=== PATIENT | male | born 1965 | race Caucasian/White ===

== ENCOUNTER → 2023-12-02 12:34 | Outpatient (REF) | payer BC, SELFPAY ==
[2023-12-02 13:19] LABS: % Basophils 0.6 % (0-2); % Eosinophils 4.7 % (0-6); % Immature Granulocytes 0.2 % (0-0.5); % Lymphocytes 13.3 % (20.5-51.1); % Monocytes 8.8 % (1.7-9.3); % Neutrophils 72.4 % (42.2-75.2); Absolute Eosinophils 0.3 10^3/uL (0-0.7); Absolute Lymphocytes 0.8 10^3/uL (1.2-3.4); Absolute Monocytes 0.6 10^3/uL (0.1-0.6); Absolute Neutrophils 4.6 10^3/uL (1.4-6.5); Hematocrit 34.3 % (39.0-52.0); Hemoglobin 11.3 g/dL (13.0-18.0); Mean Corp Hgb Conc. 32.9 g/dL (33.0-37.0); Mean Corpuscular Hgb 29.7 pg (27.0-31.0); Mean Platelet Volume 11.1 fL (7.4-10.4); Nucleated Red Blood Cells % 0 % (-); Platelet Count 130 10^3/uL (130-400); Red Blood Cell Count 3.81 10^6/uL (4.70-6.10); Red Cell Dist. Width 14.2 % (11.5-14.5); White Blood Cell Count 6.3 10^3/uL (4.8-10.8)
== END ==
LOC: RAD 12:34
PROVIDERS: ATTENDING PHYSICIAN Thoracic Surgery (Cardiothoracic Vascular Surgery); FAMILY PHYSICIAN Family Medicine
DX: Z98.890 Other specified postprocedural states (principal); T14.8XXA Other injury of unspecified body region, initial encounter
CPT/HCPCS: 71260; 85025; Q9967

== ENCOUNTER 2023-12-02 17:34 | Outpatient (RCR) | payer BC, SELFPAY | END 2023-12-02 23:59 | disposition home or self-care (01) | LOC: CRHB 17:34 | PROVIDERS: ATTENDING PHYSICIAN Internal Medicine | DX: Z95.2 Presence of prosthetic heart valve (principal) | CPT/HCPCS: 93798; G0422; G0423 ==

== ENCOUNTER 2023-12-18 17:55 | Outpatient (RCR) | payer BC, SELFPAY | END 2023-12-18 23:59 | disposition home or self-care (01) | LOC: CRHB 17:55 | PROVIDERS: ATTENDING PHYSICIAN Internal Medicine | DX: Z95.4 Presence of other heart-valve replacement (principal) | CPT/HCPCS: 93798 ==

== ENCOUNTER → 2024-01-04 09:09 | Outpatient (REF) | payer BC, SELFPAY | LOC: RCS 09:09 | PROVIDERS: ATTENDING PHYSICIAN Thoracic Surgery (Cardiothoracic Vascular Surgery); FAMILY PHYSICIAN Family Medicine | DX: Z98.890 Other specified postprocedural states (principal) | CPT/HCPCS: 93306 ==

== ENCOUNTER 2024-01-08 06:09 | Day surgery (SDC) | payer BC, SELFPAY ==
[2024-01-08] VITALS (7 sets, daily range): BP systolic 110–120; BP diastolic 72–82; BMI 25.6
--- NOTE | 2024-01-08 06:39 | W.CVOR.SURPR ---
CVOR Surgeon Immed Pre Op
-
I have examined this patient prior to performance of the scheduled procedure.
The patient's condition is unchanged from the time of the dictated/written History and
Physical and the patient is able to undergo the scheduled procedure.
Temporary pacing wire extraction under anesthesia
[2024-01-08] MEDS: NORMOSOL-R 1000 IV (07:07)
--- NOTE | 2024-01-08 09:12 | W.PA-PDMP ---
[place]-PDMP
-
Checked the [place]- Prescription Drug Monitoring Program website, no red flags identified; safe to proceed with prescription.
--- NOTE | 2024-01-08 09:14 | W.PN.CT.SURG ---
CT Surgery Operative Note
-
Pre-op Diagnosis: Pacing wire site granuloma
Post-op Diagnosis: Same
Procedure: Full extraction of one ventricular pacing wire and partial extraction of the second pacing wire, Incision and Debridement of Granulomatous Tissue and Primary Closure
Primary Surgeon: Sam Hughes MD, MS
Assisting Surgeons: Liliya Anglin PA-C (necessary to follow suture, suctioning, exposure, wound closure under my direction)
Anesthesiologist: Jay Taylor MD, Brenda Rodriguez CRNA
Scrub and Vault Manager: Kavya Pardo RN, and Sandi Betancur RN
Specimen: Granulomatous tissue and pacing wires
Cultures: Wires sent for cultures
Complications / Blood Loss: 10cc
Findings: The patient was prepped in the usual fashion from chin all the way down to groins bilaterally. A preoperative timeout was performed with all members of the staff. Antibiotics were given preoperatively within 1 hour of incision.
There was an obvious granulomatous growth from over top of the previous pacer wire site. This was resected and sent off for permanent pathology. I then continued down into the wound and was able to find the tip of one of the pacing wires. This
was placed onto a small hemostat clamp. The second wire was more buried was also identified and a hemostat was placed on that 1 as well. With very gentle traction 1 wire was removed without significant resistance. The second wire had significant
resistance and I was able to feel the heart pulling back against the wire. It was pulled out approximately 4 cm and then cut deep and allowed to retract back to the chest. All granulomatous tissue was debrided sharply and the wound was irrigated
with Betadine solution as well as an antibiotic solution. The depth of the wound was approximately 2cm. The defect was a 1 cm x 1 cm cervical. In order to facilitate a better cosmetic closure, elliptical incision (approximately 3cm in length and
1cm in width) was created around the defect in a horizontal fashion. The wound was then thoroughly debrided to ensure that there is no remaining granulomatous tissue. The deep layer was closed with 3-0 Monocryl sutures in an interrupted fashion.
The superficial layer was closed with 3-0 nylon sutures in a vertical mattress stitch x 4. After approximately 15 minutes of waiting, I performed an intraoperative transthoracic echocardiogram. Dr. Taylor served as my second set of eyes. We
visualized no significant effusion, possibly a trace effusion after looking in multiple views. I then continued to closed the wound and then performed another echo to evaluation for interval changes. None was seen. Their wound was dressed in the
usual fashion and covered with a Tegaderm dressing. The patient was allowed to emerge from moderate sedation. He remained hemodynamically stable throughout the procedure without tachycardia or hypotension. He was sent to recovery, awake and in
stable condition.
Thank you for involving me in the care of this patient. Please feel free to contact me with any questions or concerns.
Sam Hughes MD, MS
Cardiothoracic Surgeon
[facility]
This dictation was created using the [employer] dictation system. Please excuse any grammatical, typographical, or 'sound alike' errors.
== END 2024-01-08 11:30 | disposition home or self-care (01) ==
LOC: SDS 06:09
PROVIDERS: ATTENDING PHYSICIAN Thoracic Surgery (Cardiothoracic Vascular Surgery); FAMILY PHYSICIAN Family Medicine
DX: T82.897A Other specified complication of cardiac prosthetic devices, implants and grafts, initial encounter (principal); Y83.8 Other surgical procedures as the cause of abnormal reaction of the patient, or of later complication, without mention of misadventure at the time of the procedure; L92.8 Other granulomatous disorders of the skin and subcutaneous tissue
CPT/HCPCS: 11042; 33235; C1900; 88304; 88305; 71045; 86850; 86900; 86901; 87070; 87102; 87147; 87176; 87186; 87205

== ENCOUNTER → 2025-01-30 12:54 | Outpatient (REF) | payer BC, SELFPAY | LOC: RCS 12:54 | PROVIDERS: ATTENDING PHYSICIAN Thoracic Surgery (Cardiothoracic Vascular Surgery); FAMILY PHYSICIAN Family Medicine | DX: Z98.890 Other specified postprocedural states (principal) | CPT/HCPCS: 93306 ==

== ENCOUNTER → 2025-02-13 16:58 | Outpatient (REF) | payer BC, SELFPAY | LOC: RAD 16:58 | PROVIDERS: ATTENDING PHYSICIAN Otolaryngology; FAMILY PHYSICIAN Family Medicine | DX: H93.A2 Pulsatile tinnitus, left ear (principal) | CPT/HCPCS: 70496; 70498; Q9967 ==

== ENCOUNTER 2025-05-02 05:48 | Emergency (ER) | payer BC, SELFPAY ==
[2025-05-02 05:51] VITALS: BP 120/66
[2025-05-02 07:23] VITALS: BP 110/68
[2025-05-02] MEDS: TYLENOL 1000 MG PO (07:24)
--- NOTE | 2025-05-02 07:39 | ED.MUSCINJ ---
HPI-Injury
<Antonio Patino MD, Resident - Last Filed: 05/02/25 09:48>
General
Chief Complaint: Musculo-Skeletal Complaint
Source: patient
Exam Limitations: other (Pain)
Time Seen by Provider: 05/02/25 07:27
Nursing documentation reviewed up to this point in time: agreed with
History of Present Illness-Injury
Is this injury a work related problem?: No
Initial Injury comments:
This is a 60-year-old male presenting to the emergency department with complaints of left knee pain. Patient states that he was playing golf on Thursday, after that he noticed some pain, took Tylenol and it was okay initially on Thursday however the
pain and swelling continues to increase limiting range of motion of left knee which prompted him to present to the emergency department. He informed me that he had left knee patella surgery 40 years ago. He denies any fall or trauma. Denies any
systemic symptoms including fever. He informed me that his range of motion in the left knee is limited because of the swelling and pain which he rates at 8/10. Denies any radiating pain.
Past History
<Antonio Patino MD, Resident - Last Filed: 05/02/25 09:48>
Past History
ED Past Medical History: Arrthythmia (Atrial fib), GERD, HTN, Valvular disease (Mitral regurgitation) and Other (kidney stones, Cardioversion,)
ED Past Surgical History: Cardiac and Orthopedic
Social History
Tobacco: Non-smoker
Alcohol: Former (Beer/Wine- says he does not consume )
Drug: None
Personal:
Living: with family
Review of Systems
<Antonio Patino MD, Resident - Last Filed: 05/02/25 09:48>
Review of Systems
Allergies reviewed?: Yes
Constitutional: Reports no symptoms
EENT: Reports no symptoms
Respiratory: Reports no symptoms
ABD/GI: Reports no symptoms
: Reports no symptoms
Musculoskeletal: Reports joint pain (Left knee), joint swelling (Left knee) and other (Left knee range of motion is limited because of pain and swelling)
Skin: Reports no symptoms
Neurological: Reports no symptoms
Endocrine: Reports no symptoms
Hematologic/Lymphatic: Reports no symptoms
Psychiatric: Reports no symptoms
Musculoskeletal Injury Exam
<Antonio Patino MD, Resident - Last Filed: 05/02/25 09:48>
Musculoskeletal Injury Exam
Left Knee:
Pain with Movement?: Severe
Tender to palpation?: Moderate
Soft tissue swelling?: Moderate
Joint instability?: No
Malalignment/deformity?: No
Range of motion: Limited
Distal skin color and temperature: normal-warm & good color
Capillary Refill: normal
Peripheral Pulses: dorsalis pedis (left): 2+
Phy Exam
<Antonio Patino MD, Resident - Last Filed: 05/02/25 09:48>
General Physical Exam
General Presentation: well appearing and no apparent distress
General Skin: warm
General Habitus: normal
Cardiovascular Exam
Cardiovascular Exam: regular rate/rhythm and no murmur
Pulmonary Exam
Pulmonary Exam: lungs clear and no respiratory distress
Neurological Exam
Neurological Exam: alert and oriented x3
Musculoskeletal Exam
Musculoskeletal Exam: joint swelling
Injury Course
<Antonio Patino MD, Resident - Last Filed: 05/02/25 09:48>
Orders/Labs/Results
Orders:
Orders
05/02/25 07:04
Acetaminophen [Tylenol] 1,000 mg PO NOW STA
05/02/25 07:45
CR Knee - Left 4 Or More View* Urgent
Comment:
Reason For Exam: Left knee pain and swelling
05/02/25 08:01
Bradley Wrap Left-Treatment ONCE
Ibuprofen [Motrin] 600 mg PO NOW STA
05/02/25 08:02
Ice Pack-Treatment DIRECTED
Location: left knee
<Felix Sheldon, DO - Last Filed: 05/02/25 08:33>
Orders/Labs/Results
Orders:
Orders
05/02/25 07:04
Acetaminophen [Tylenol] 1,000 mg PO NOW STA
05/02/25 07:45
CR Knee - Left 4 Or More View* Urgent
Comment:
Reason For Exam: Left knee pain and swelling
05/02/25 08:01
Bradely Wrap Left-Treatment ONCE
Ibuprofen [Motrin] 600 mg PO NOW STA
05/02/25 08:02
Ice Pack-Treatment DIRECTED
Location: left knee
<Antonio Patino MD, Resident - Last Filed: 05/02/25 09:48>
MDM/Problems Addressed
Differential Diagnosis Includes:
Ligament injury/meniscal tear/tendinitis vs less likely gout vsless likely septic arthritis
MDM/Problems Addressed:
Tylenol 1000 mg for pain and will get left knee x-ray for further evaluation.
update: Pain decreased to an extent after Tylenol. X-ray with small suprapatellar joint effusion. Mild degenerative change, most pronounced within the medial compartment.
Discussed the use of ice, Bradley wrap, rest and NSAIDs like ibuprofen 400 mg every 4h. Advise follow-up outpatient with orthopedic. Patient verified understanding and agree with the plan.
<Antonio Patino MD, Resident - Last Filed: 05/02/25 09:48>
*Pulse Oximetry
SaO2: 100
Oxygen Mode of Delivery: Room air
Patient hypoxic: no
*Critical Care Note
Total Time (30-74mins, 75-104mins- exclusive of procedures): Not Applicable
ED Attending Note
<Antonio Patino MD, Resident - Last Filed: 05/02/25 09:48>
-
Portions of this chart may have been created with voice recognition software.� Occasional wrong word or��sound alike� substitutions may have occurred due to the inherent limitations of voice recognition software.
<Felix Sheldon DO - Last Filed: 05/02/25 08:33>
ED Attending Note
Patient seen and examined by attending physician: Yes
I performed a history and physical exam of patient and discussed management with resident, I reviewed resident's note and agree with documented findings and plan of care.: Yes
ED Attending Note:
Seen with resident examined dependently 60-year-old male left knee swelling after walking 9 holes of golf distant history of surgery on his patella has an effusion no warmth or signs of infection no longer on Eliquis will try Motrin x-ray had a
follow-up with orthopedics possible internal derangement
Discharge Plan
Departure
Patient Disposition: Home (Routine Discharge)
Date of Disposition: 05/02/25
Time of Disposition: 09:41
Patient with high blood pressure during this ER visit?: No
Condition: Fair
Discharge Problem:
Acute pain of left knee, Internal derangement of knee
Instructions: Knee Sprain (DC), Knee Pain (DC), Using Cold for Pain
Prescriptions:
No Action
omeprazole 40 mg Capsule,Delayed Release(Dr/Ec)
40 mg PO DAILY
famotidine 20 mg Tablet
20 mg PO HS
Eliquis 5 mg tablet
5 mg PO BID Qty: 60 0RF
lorazepam 0.5 mg Tablet
0.5 mg PO Q6HPRN PRN (Reason: anxiety)
Patient Comments:
09/29/23 filled on 05/08/23 #10
escitalopram oxalate 10 mg Tablet
10 mg PO DAILY
oxycodone 5 mg Tablet
5 mg PO Q6HPRN PRN (Reason: moderate to severe pain) Qty: 20 0RF
acetaminophen 325 mg Tablet
650 mg PO Q6HPRN PRN (Reason: mild pain) Qty: 0 0RF
ondansetron HCl 4 mg tablet
4 mg PO Q8H PRN (Reason: nausea and vomiting) Qty: 7 0RF
omega 5-cdm-ffm-fish oil [Fish Oil] 1,000 mg (120 mg-180 mg) Capsule
1 cap PO DAILY
Fiber Gummies 2 gram Tablet,Chewable
4 g PO DAILY
metoprolol succinate 25 mg Tablet Extended Release 24 Hr
12.5 mg PO BID Qty: 60 6RF
colchicine 0.6 mg Tablet
0.3 mg PO DAILY Qty: 30 2RF
amiodarone 200 mg tablet
200 mg PO DAILY Qty: 30 5RF
oxycodone 5 mg tablet
5 mg PO Q6H PRN (Reason: moderate-severe pain ) Qty: 10 0RF
Rx Instructions:
ongoing pain control. Attending Dr. Sam Hughes MD
Referrals:
Devyn Tolbert MD [Family Provider, Family Practice] - Follow up in 1 week
Virgil Dean MD [Active, Orthopedics] - Follow up in 2-3 days
Activity Restrictions/Additional Instructions:
You were seen in the emergency department due to left knee pain. X-ray of your left knee showed small suprapatellar joint effusion. Mild degenerative change, most pronounced within the medial compartment. Recommend ice, Bradley wrap, NSAIDs like
ibuprofen 400 mg every 4 hours as needed. Follow-up with orthopedic outpatient, information attached.
Interventions
Interventions:
*Risk Screen - Suicide Last Done: 05/02/25 05:51
*General Assessment Last Done: 05/02/25 07:00
*Neglect/Abuse Screening Last Done: 05/02/25 05:51
*ED- Fall Risk Assessment Last Done: 05/02/25 07:00
*ED COVID-19 Vaccine History Last Done: 05/02/25 07:00
ED-Musculoskeletal Assessment Last Done: 05/02/25 07:00
Discharge Date and Time
Print Language: MALTESE
[2025-05-02] MEDS: MOTRIN 600 MG PO (08:10)
[2025-05-02 09:14] VITALS: BP 95/68
== END 2025-05-02 10:00 | disposition home or self-care (01) ==
LOC: EMR 05:48
PROVIDERS: EMERGENCY PHYSICIAN Emergency Medicine; FAMILY PHYSICIAN Family Medicine
DX: M25.562 Pain in left knee (principal); M25.462 Effusion, left knee; M23.92 Unspecified internal derangement of left knee; I48.91 Unspecified atrial fibrillation; M17.12 Unilateral primary osteoarthritis, left knee; K21.9 Gastro-esophageal reflux disease without esophagitis; I10 Essential (primary) hypertension; I34.0 Nonrheumatic mitral (valve) insufficiency; F41.9 Anxiety disorder, unspecified; Z87.442 Personal history of urinary calculi; Z86.16 Personal history of COVID-19; Z79.01 Long term (current) use of anticoagulants; Z91.048 Other nonmedicinal substance allergy status
CPT/HCPCS: 99283; 73564

== ENCOUNTER 2025-10-25 12:56 | Inpatient (IN) | payer BC, SELFPAY ==
[2025-10-25] VITALS (26 sets, daily range): BP systolic 86–110; BP diastolic 50–74; PULSE 93–115; BMI 24.5; BMI 25.4
--- NOTE | 2025-10-25 08:21 | ED.GENMED ---
History of Present Illness
General
Chief Complaint: Abdominal Symptoms
Time Seen by Provider: 10/25/25 08:21
History of Present Illness
History of Present Illness:
FOCUSED PAST MEDICAL HISTORY
- A-fib on Eliquis and amiodarone and metoprolol, anxiety, has had kidney stones
REVIEW OF OLD RECORDS
- The patient was admitted 2 years ago with chest pain and fever
Note:
CHIEF COMPLAINT(S)
Fevers, vomiting, diarrhea and body aches.
HISTORY OF PRESENT ILLNESS
The patient is a 60-year-old male presenting with a chief complaint of diarrhea, body aches, and fever. Symptoms began on Thursday night with a fever reaching up to 102�F, which has been intermittent. The patient reports taking ibuprofen and
hhzr-mrv-prpstic medications without significant relief. There is an associated nausea and vomiting, with emesis described as acidic, yellow fluid without food content. The patient has been experiencing dizziness and visual disturbances described as
'flashes of light.' The last oral intake was two days prior, with subsequent vomiting. He reports diffuse body aches that are a primary concern, along with mild diffuse abdominal tenderness, particularly when palpated. The patient has not
experienced any recent respiratory symptoms. He denies recent antibiotic use since mid-summer when treated for a blood infection.
PAST MEDICAL AND SURGICAL HISTORY
Patient recalls a previous admission for a blood infection, where the knee was swollen and drained multiple times, leading to a diagnosis of bacteremia. Previous imaging at another facility showed no bone or muscle abnormalities.
EXTERNAL RECORDS REVIEWED
The patients history of a blood infection and previous hospital evaluations were reviewed.
PHYSICAL EXAM
General: Appears somewhat uncomfortable, hypotensive
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
Head: Normocephalic, atraumatic.
Neck: Supple, trachea midline.
Eye, Ears, Nose, Mouth, and Throat: Oral mucosa moist.
Cardiovascular: Normal peripheral perfusion, no edema.
Respiratory: Respirations are non-labored.
Gastrointestinal: Abdomen nondistended, mild diffuse abdominal tenderness on palpation.
Back: Normal range of motion, normal alignment.
Musculoskeletal: Normal ROM, normal strength.
Neurological: Alert and oriented to person, place, time, and situation, no focal neurological deficit observed.
Psychiatric: Cooperative, appropriate mood & affect.
PROBLEM LIST
- Acute: Diarrhea, fever, nausea, vomiting, diffuse body aches, mild diffuse abdominal tenderness.
- Chronic: History of blood infection.
PLAN
1. Initiate intravenous fluid therapy for hydration.
2. Administer antiemetic medication for nausea.
3. Obtain blood cultures and conduct comprehensive blood work including tests for flu.
4. Review the patients previous medical records for further context and treatment history.
5. Re-evaluate the patient with blood test results and clinical progress.
DIFFERENTIAL DIAGNOSIS
The differential diagnosis includes, in no particular order and is not limited to:
- Viral gastroenteritis
- Influenza
- Bacterial gastroenteritis
- Systemic inflammatory response syndrome
- Dehydration secondary to vomiting and diarrhea
- Medication side effects
- Toxic ingestion
- Appendicitis
- Pancreatitis
- Obstructive uropathy
RADIOLOGY
- Chest x-ray clear
- CT head no acute abnormality
- CT abdomen pelvis shows no clear acute abnormality
LABS
- GHULAM noted with creatinine 2.0, bicarb 17, white count normal, 10% bands, CRP greater than 270, chest x-ray clear
SUMMARY OF ENCOUNTER
The patient, a 60-year-old male, was seen in the emergency department with complaints of diarrhea, body aches, fever, nausea, and vomiting. He has been experiencing dizziness and visual disturbances, as well as diffuse body aches. The patients fever
has reached up to 102�F and has been persistent. Initial examination revealed mild diffuse abdominal tenderness. Laboratory work indicated normal white blood cell counts but elevated band counts, suggesting possible infection. Blood cultures are
pending. Imaging including a chest x-ray, CT of the brain, and CT of the abdomen were performed and showed no acute abnormalities. However, the lactic acid level was elevated, and kidney function tests indicated impaired renal function with a
creatinine level of 2.0. Considering these findings and the symptoms, the patient was assessed for potential dehydration and infection. Intravenous fluids were administered to address dehydration, but the patient reported no improvement.
DISPOSITION
Admit.
ASSESSMENT
The patient exhibits symptoms indicative of a potential systemic infection or severe dehydration, possibly viral or bacterial gastroenteritis. The elevated lactic acid and impaired kidney function point to hypoperfusion secondary to dehydration.
Differential diagnoses also consider viral gastroenteritis, influenza, or systemic inflammatory response syndrome. Based on the severity of symptoms and laboratory findings, inpatient management is warranted.
EMERGENCY TREATMENTS ADMINISTERED
Intravenous fluid therapy was administered for hydration.
MANAGEMENT OF THE PATIENTS CARE WAS DISCUSSED WITH
The hospitalist team has been informed and will assume care for further evaluation and management.
PLAN
1. Admit the patient to the hospital for further evaluation and management.
2. Continue intravenous fluids to address dehydration.
3. Await blood culture results to rule out bacteremia or bloodstream infection.
4. Monitor renal function and other vital signs.
5. Consider further investigations if the patients condition does not improve, including additional infectious disease markers or stool studies.
INDEPENDENT REVIEW OF LABS AND INTERPRETATION OF TESTS
My independent review of the CBC shows normal white blood cell count but elevated band counts, suggesting possible infection. My independent review of renal function tests indicates impaired kidney function with creatinine at 2.0. My independent
review of lactic acid levels shows elevation, indicating possible sepsis or hypoperfusion.
ADDITIONAL TESTING AND IMAGING CONSIDERED
Stool studies were considered to evaluate for infectious causes of diarrhea but have not yet been obtained.
MEDICAL DECISION MAKING
-Chronic conditions affecting care: History of blood infection with bacteremia.
-Data:
Category 1: Reviewed previous external records indicating a history of bloodstream infection.
Category 2: My independent interpretation of the CT scan of the brain and abdomen and chest x-ray shows no acute abnormalities.
-Risk: Consideration of Admission/Observation: Escalation of care including admission/observation was considered given the complexity and risk of the patients presenting complaint, exam findings, and/or their underlying comorbidities. However,
ultimately I feel the patient is safe for inpatient management with close follow-up.
DIAGNOSIS
1. Severe sepsis
2. Acute renal failure due to dehydration (N17.9)
UPDATE
- Fevers over the last few days along with generalized achiness and nausea and vomiting and diarrhea
- Hypotension upon arrival along with mild tachycardia
- Appears generally weak and debilitated
- He tried to get up off the table and x-ray and then fell and struck his head
- After 2 L of fluid systolics remained around 90 systolic
- On third liter his systolic is now 102
- He continues to feel unwell
- He has a history of bacteremia related to left knee swelling/infection and I have placed him on broad-spectrum antibiotics; he has no knee swelling currently
- He has excellent chin to chest testing with no meningeal signs currently
- Blood cultures are pending, initial lactic 3.7
- GHULAM with creatinine 2
Past History
Past History
ED Past Medical History: Arrthythmia (Atrial fib), GERD, HTN, Valvular disease (Mitral regurgitation) and Other (kidney stones, Cardioversion,)
ED Past Surgical History: Cardiac and Orthopedic
Social History
Tobacco: Non-smoker
Alcohol: Former (Beer/Wine- says he does not consume )
Drug: None
Personal:
Living: with family
Phy Exam
Physical Exam
Physical Exam:
See HPI
Sepsis
Sepsis Screening
Sepsis Assessment: Severe Sepsis
Sepsis Screening: Lactate >2mmol/L
Sepsis Screen
Sepsis Screen: Severe Sepsis
Date: 10/25/25
Time: 11:43
Course
Orders/Labs/Results
Orders:
Orders
10/25/25 08:24
0.9% Sodium Chloride 1000 ml [Nss] 1,000 ml IV BOLUS
10/25/25 08:31
Ondansetron Injectable [Zofran] 4 mg IV NOW STA
10/25/25 08:32
Urinalysis Reflex To Culture Urgent
10/25/25 08:37
COVID-19 Antigen Urgent
Source: Nasal Swab
CRP [C-Reactive Protein] Urgent
Complete Blood Count/With Diff Urgent
Comprehensive Metabolic Panel Urgent
ESR [Erythrocyte Sed Rate] Urgent
Lactic Acid Q4H
Comment: CANCEL 2nd LACTIC ACID IF 1st LACTIC ACID IS LESS THAN 2
Lipase Urgent
Manual Differential Urgent
Blood Culture Q30M
LAURA Source: Blood/Venous
Specimen Description:
Influenza A+B Rapid Molecular Urgent
LAURA Source: Nasal Swab
Specimen Description:
10/25/25 08:43
Blood Culture Q30M
LAURA Source: Blood/Venous
Specimen Description:
10/25/25 08:45
Lactic Acid Q4H
Comment: CANCEL 2nd LACTIC ACID IF 1st LACTIC ACID IS LESS THAN 2
10/25/25 09:06
CT Head W/o Iv Contrast Urgent
Comment:
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
10/25/25 09:07
CT Abd/pel Without Iv Or Oral Urgent
Comment:
Reason For Exam: abd pain; fevers; V/D; GHULAM; sepsis
10/25/25 09:09
CR Chest Portable - 1 View Urgent
Comment:
Reason For Exam: sepsis
Reason Study Needs to be Portable: Patient Unstable
10/25/25 09:31
0.9% Sodium Chloride 1000 ml [Nss] 1,000 ml IV BOLUS
10/25/25 11:05
0.9% Sodium Chloride 1000 ml [Nss] 1,000 ml IV BOLUS
Acetaminophen [Tylenol] 1,000 mg PO NOW STA
10/25/25 11:30
Cefepime HCl [Maxipime] 1,000 mg IV NOW STA
10/25/25 11:34
Vancomycin [Vancocin] 2,000 mg 0.9% Sodium Chloride 500 ml [Nss] 500 ml IV NOW
Abnormal Lab Results
10/25/25
08:37
RBC 4.12 L 10^6/uL
(4.70-6.10)
Hgb 12.1 L g/dL
(13.0-18.0)
Hct 35.4 L %
(39.0-52.0)
Plt Count 72 L 10^3/uL
(130-400)
MPV 11.7 H fL
(7.4-10.4)
Segmented Neutrophils 83 H %
(42-75)
Band Neutrophils 10 H %
(0-3)
Lymphocytes (Manual) 4 L %
(20-51)
ESR 39 H mm/hour
(0-20)
Sodium 134 L mmol/L
(135-145)
Carbon Dioxide 17 L mmol/L
(22-30)
BUN 37 H mg/dl
(9-20)
Creatinine 2.0 H mg/dL
(0.7-1.3)
Glucose 141 H mg/dl
(70-99)
Lactic Acid 3.7 H mmol/L
(0.7-2.0)
C-Reactive Protein > 270.00 H mg/L
(0.0-10.00)
10/25/25 08:37
10/25/25 08:37
Vital Signs
Initial and Last Documented VS:
Initial Vital Signs
Pulse Resp Pulse Ox
104 22 99
10/25/25 07:30 10/25/25 07:30 10/25/25 07:30
Last Documented Vital Signs
Temp Pulse Resp BP Pulse Ox
37.1 C 98 20 90/59 98
10/25/25 11:02 10/25/25 11:00 10/25/25 11:00 10/25/25 11:00 10/25/25 11:00
*Pulse Oximetry
SaO2: 99
Oxygen Mode of Delivery: Room air
Patient hypoxic: yes
*Critical Care Note
Total Time (30-74mins, 75-104mins- exclusive of procedures): Not Applicable
ED Attending Note
-
Portions of this chart may have been created with voice recognition software.� Occasional wrong word or��sound alike� substitutions may have occurred due to the inherent limitations of voice recognition software.
Discharge Plan
Departure
Prescriptions:
No Action
aspirin 81 mg Tablet,Delayed Release (Dr/Ec)
81 mg PO DAILY
escitalopram oxalate 10 mg Tablet
10 mg PO DAILY
tadalafil 5 mg Tablet
5 mg PO DAILY
metoprolol tartrate 25 mg Tablet
12.5 mg PO BID
Voltaren 1 % gel
1 applic topical QIDPRN PRN (Reason: apply to right pinky finger joint)
Referrals:
Devyn Tolbert MD [Family Provider, Family Practice]
Interventions
Interventions:
*General Assessment Last Done: 10/25/25 07:30
*Neglect/Abuse Screening Last Done: 10/25/25 07:30
*ED COVID-19 Vaccine History Last Done: 10/25/25 08:42
*ED Influenza Vaccine History Last Done: 10/25/25 08:42
[facility] Fall Risk Assessment Tool Last Done: 10/25/25 08:41
*Risk Screen - Suicide (C-SSRS) Last Done: 10/25/25 07:30
SN-Fmxasi-Csihvylqox Assessment Last Done: 10/25/25 08:42
Discharge Date and Time
Print Language: [id number]
[2025-10-25] MEDS: NSS 1000 IV ×3 (08:39→11:09)
[2025-10-25] MEDS: ZOFRAN 4 MG IV (08:40)
[2025-10-25 09:05] LABS: ALT (SGPT) 32 U/L (0-50); AST (SGOT) 40 U/L (17-59); Albumin 4.0 g/dl (3.5-5.0); Alkaline Phosphatase 113 U/L (38-126); Blood Urea Nitrogen 37 mg/dl (9-20); Calcium 8.7 mg/dl (8.4-10.2); Carbon Dioxide 17 mmol/L (22-30); Chloride 101 mmol/L (98-107); Estimated Creatinine Clearance 49 ml/min; Glucose 141 mg/dl (70-99); Lipase 67 U/L (23-300); Potassium 3.6 mmol/L (3.5-5.1); Sodium 134 mmol/L (135-145); Total Protein 7.1 g/dl (6.3-8.2); eGFR 37.74
[2025-10-25 09:12] LABS: COVID-19 Antigen Negative (Negative)
[2025-10-25 09:16] LABS: Hematocrit 35.4 % (39.0-52.0); Hemoglobin 12.1 g/dL (13.0-18.0); Mean Corp Hgb Conc. 34.2 g/dL (33.0-37.0); Mean Corpuscular Volume 85.9 fL (80.0-94.0); Red Cell Dist. Width 14.5 % (11.5-14.5)
[2025-10-25 09:42] LABS: C-Reactive Protein > 270.00 mg/L (0.0-10.00)
[2025-10-25 10:25] LABS: Platelet Count 72 10^3/uL (130-400)
[2025-10-25 10:28] LABS: Absolute Neutrophils -Man Diff 4.4 10^3/uL (1.4-6.5); Platelets Checked Yes; Total Cells Counted 100
[2025-10-25 10:29] LABS: Normal RBC Morphology Yes
[2025-10-25] MEDS: TYLENOL 1000 MG PO (11:09)
[2025-10-25] MEDS: MAXIPIME 1000 MG IV (11:48)
--- NOTE | 2025-10-25 12:02 | W.PN.UPDATE ---
Update Note
Progress Note Update
60-year-old male with cardiomyopathy (mildly reduced EF of 45% in 2022), paroxysmal AF s/p DCCV x 2, VT, MVP s/p MVR, BENITA presenting to the ED with fevers, vomiting/diarrhea, myalgias. Symptoms began Thursday, had fever at home of up to 102 �F which
has been intermittent. States has been taking ibuprofen and OTC medications without relief. Vomiting described as nonbloody, yellow fluid with food content. Developed some dizziness and 'flashing lights' in his visual field. Has had reduced oral
intake for 2 days due to vomiting. Also complains of mild diffuse abdomen tenderness. Denies shortness of breath, chest pain. States that he was hospitalized this summer for septicemia and was treated with antibiotics. BP soft though AFVSS
through ED course. Labs with hemoglobin 12.1, platelets 72, 83% segmented neutrophils with 10% bands, sodium 134, bicarb 17, BUN 37, creatinine 2, ESR 38 with CRP >270. Flu and COVID testing were negative. Chest x-ray unremarkable, however while
patient was at x-ray he had a syncopal episode and struck his head. CT head with soft tissue edema and scalp hematoma on the right. CT A/P without contrast was without acute abnormalities, showed moderately distended gallbladder without signs of
stones, and splenomegaly. Blood cultures obtained in the ED. In the ED was given IV Zofran, acetaminophen, and 1 L IV fluids.
AO x 4, appears ill, well-nourished. Benign cardiopulmonary exam. RUQ tenderness though no Gruber, nondistended, NBS +, no peritoneal signs. No edema, no JVD, palpable pulses. Skin warm and dry, hemangioma of the right buccal skin and chin/neck.
No rashes. No FND
#Prerenal GHULAM, NAGMA. Likely secondary to viral gastroenteritis, inability to tolerate oral intake at home. Blood pressure soft though MAP >65. Started on IV fluids in the ED. Will continue with IV LR at 125 mL/h and trend BMP and urine output.
Avoid nephrotoxins. Consider midodrine if BP remains soft or worsens
#RUQ pain, Hypotension, lactic acidosis. Likely due to prerenal state and hypovolemia, cannot rule out cholecystitis. Lactate 3.7 on arrival. Remains on IV fluids. Will add hold parameters to home metoprolol tartrate. Continue with IV fluids
and trend lactate to normal. Transition antibiotics to IV Zosyn and follow-up blood cultures. Trend CBC and temperature curve. Check AM cortisol
#Syncope. High suspicion for orthostasis versus ayad hypotension. Had some lightheadedness at home preceding hospitalization. Will check orthostatic vital signs. Monitor VS. Monitor telemetry
#Viral gastroenteritis. CT A/P without any signs of obstruction or other acute processes of the GI tract. Presence of myalgias and vomiting with diarrhea suggest viral etiology. Continue with supportive care, as needed antiemetics and Imodium
#Elevated inflammatory markers. Symptomatology not consistent with IBD. Suspect that this is associated with underlying viral infection versus cholecystitis.
#Thrombocytopenia. Likely reactive from ongoing gastroenteritis. Continue to trend CBC for now. Supportive transfusions if platelets <10K or <50 K associated with bleeding
#Scalp hematoma. Supportive care and as needed Tylenol
Diet -- CLD and ADAT
DVT -- SQ heparin
CODE -- Full
I have independently evaluated the patient at the bedside in the ED. I will be admitting Steven Saha to the IMU. He is at high risk for worsening morbidity due to acute renal insufficiency and hypotension. He will require intensive
monitoring of his renal function and readjustment of his antihypertensive regimen. I have discussed this case with the ED attending. I have reviewed the case with the resident and agree with all documentation unless otherwise specified.
Please see formal resident H&P once available
[2025-10-25] MEDS: VANCOCIN 540 MG IV (12:13)
--- NOTE | 2025-10-25 12:51 | HPS.HSE ---
Family Physician
-
Family Physician: Devyn Tolbert
Chief Complaint
-
abdominal symptoms
History of Present Illness
60yoM PMH afib secondary to valvular dx s/p MV replacement, nephrolithiasis, sepsis secondary to L knee infxn in May presenting with acute onset of diarrhea, body aches, chills, fever since Thursday afternoon 4 days ago.
Pt reports starting to have body aches, diarrhea and chills Misael with onset of nausea and vomiting yesterday. Denies cough, rhinorrhea, rash, palpitations, SOB. He describes lightheadedness with presyncopal symptoms over the last day. Syncopal
episode getting his CXR done today and hit his head. Denies LOC at home. Denies sick contacts or recent travel. Pt reports fevers at home up to 102, taking tylenol and ibuprofen at home.
Additioanlly, pt reports chronic back T6-T10 that has been worse over the last 3-4 weeks due to inability to see his chiropractor. He has had back pain since he was 21 but ti has subacutely worsened. No radiation of pain across chest or point
tenderness. He describes worsening in the stretcher.
Medical History
Past Medical History
Past Medical History: Reports Arrhythmia (afib not since MV replacement s/p ablation), Valvular Disease (MV replacement) and Other (L knee infection tx 4 wks abx over the summer, recurrent nephrolithiasis)
Past Surgical History: Reports Orthopedic (L knee surgery 40 years ago)
Social History
Tobacco: Non-smoker
Alcohol: None
Personal:
Living: With Family
Employment: Retired
Family History
Family History: Not pertinent
Allergies / Home Medications
Allergies reflects when Allergies were last updated in [facility].
Home Medications with original date entered in [facility]
Allergy/Medication List:
Allergies
Allergy/AdvReac Type Severity Reaction Status Date / Time
adhesive tape Allergy Rash Verified 05/02/25 05:53
Home Medications
Voltaren 1 applic topical QIDPRN PRN apply to right pinky finger joint 10/25/25
aspirin 81 mg tablet,delayed release 81 mg PO DAILY 10/25/25
escitalopram oxalate 10 mg tablet 10 mg PO DAILY 10/25/25
metoprolol tartrate 25 mg tablet 12.5 mg PO BID 10/25/25
tadalafil 5 mg tablet 5 mg PO DAILY 10/25/25
Review of Systems
-
History Source: Patient
A 12 point ROS was completed and negative except as noted: Yes
Constitutional: Reports Fever and Chills
EENT: Reports No Symptoms
Respiratory: Reports No Symptoms
Cardiac: Reports Syncope
Abdomen/GI: Reports Abdominal Pain, Nausea, Vomiting and Diarrhea
Musculoskeletal: Reports No Symptoms (generalized aches)
Skin: Reports No Symptoms and Rash (hemangioma birthmark, benign)
Neurological: Reports No Symptoms
Endocrine: Reports No Symptoms
Hematologic/Lymphatic: Reports No Symptoms
Physical Exam
Vital Signs
Vital Signs
Temp Pulse Resp BP Pulse Ox
98.8 F 107 25 93/62 96
10/25/25 11:02 10/25/25 12:00 10/25/25 12:00 10/25/25 12:00 10/25/25 12:00
Physical Exam
General: Well Developed, Well Nourished, No Apparent Distress and Comfortable
HEENT: NormoCephalic, Anicteric, Moist mucous membranes and Other (hematoma on back of head)
Respiratory: Clear and Non Labored Respirations
Cardiac: S1/S2 and Regular Rhythm
GI: Soft, Non Distended and Tender (RUQ tenderness)
Musculoskeletal: No Clubbing, No Cyanosis, No Edema and Other (no tenderness to palpation down the spine)
Skin: Warm and Dry
Neuro: AO x 3, Nonfocal/grossly intact and Cranial Nerves Intact
Hematologic/Lymphatic: No Lymphadenopathy
Psych: Calm
Laboratory Results
-
10/25/25 08:37
10/25/25 08:37
Laboratory Results
Lactic Acid 3.7 mmol/L (0.7-2.0) H 10/25/25 08:37
Total Bilirubin 1.1 mg/dl (0.2-1.3) 10/25/25 08:37
AST 40 U/L (17-59) 10/25/25 08:37
ALT 32 U/L (0-50) 10/25/25 08:37
Alkaline Phosphatase 113 U/L (38-126) 10/25/25 08:37
Lipase 67 U/L (23-300) 10/25/25 08:37
Impression/Plan
-
IMPRESSION:
60yoM PMH afib secondary to valvular dx s/p MV replacement, nephrolithiasis, sepsis secondary to L knee infxn in May presenting with acute onset of diarrhea, body aches, chills, fever since Thursday afternoon 4 days ago.
Afebrile. Continues to be borderline hypotensive after 3L resuscitation. Whole body aches, RUQ tenderness. Nausea and vomiting. GB distention on CT. Head CT positive for subgaleal hematoma. WBC 4.8, 10% bands, BUN 37 Cr 2.0. Lactate 3.7 repeat 1.3.
Thrombocytopenia, hx of low plts with infxn per outpt records. LFTs WNL. Lipase 67. Sepsis with GHULAM viral gastroenteritis vs biliary infection given distention on CT and RUQ tenderness. No Lymphadenopathy. CRP>270 ESR 39. UA pending. CXR not
indicative of acue cardiopulmonary process.
PLAN:
#sepsis
#nausea, vomiting, diarrhea
#lactic acidosis
- fluid resuscitation
- Supportive measures, Tylenol, zofran PRN
- Continue Zosyn pending abd US. Possible viral gastroenteritis
- UA pending
- CXR not indicative of acute cardiopulmonary process
#RUQ tenderness
#splenomegaly
- GB distended and splenomegaly on CT, ordered Abd US
- LFTs WNL
- Lipase 67
#prerenal GHULAM
- fluid resuscitation
- Trend CMP
#thrombocytopenia
- hx outpt, trend plts
- no active bleeding so plan to monitor
#chronic back pain
- PRN tylenol. Hold toradol given GHULAM
- Diclofenac gel
- try 1 dose morphine
Code: Full
DVT prophylaxis: lovenox
Diet: NPO pening abd US
[2025-10-25 13:41] LABS: Urine Character Clear (Clear)
[2025-10-25 13:49] LABS: Urine Squamous Cell 0-2 /LPF (Few)
[2025-10-25 13:51] LABS: Urine White Cell 16-20 /HPF (0-5)
--- NOTE | 2025-10-25 14:30 | CM ---
Chart reviewed and spoke with pt at ED bedside
hx of sepsis in 05/2025 after left knee surgery
on IV abx at home
Lives at home with 2 SH
independent
no DME
PCP Devyn Tolbert
[facility]
hx of home infusion but unsure of name
no SNF
DCP is to go home
Cm will continue to follow up for dcp needs
[2025-10-25] MEDS: TYLENOL 650 MG PO ×2 (15:06→19:06)
[2025-10-25] MEDS: LR 1000 IV ×2 (17:04→23:27)
[2025-10-25] MEDS: MORPHINE SULFATE 1 MG IV (17:05)
[2025-10-25] MEDS: LOVENOX 40 MG SC (17:18)
--- NOTE | 2025-10-25 18:58 | PTCARENOTE ---
Admit to [id number] IMU monitors placed- ST on tele 90s-100, ephraimkey, wants to get up to urinate- ortho BP s taken as we tried and BP dropped to 86 upon standing- asymptomatic at that time. Afebrile . Voided 100ml dann urine returned to bed. Admission
completed bedside. IVF initiated. VAT calld for 2nd line for antibx incompatibility. Also awaiting Zosyn dose.
--- NOTE | 2025-10-25 19:44 | W.PN.UPDATE ---
Update Note
Progress Note Update
-Reported by the nursing staff that the at bedside and reporting a change in the patient`s mental status, hallucinating. Vital signs bp 108/74, hr 104, RR 32, Temp 99.3, SPo2 94%.
-Patient had syncopal episode is at the x-ray during the day and he hit his head That result of RT scalp hematoma.
-Patient assessed, at bedside. Patient is alert and oriented x3, Pupils equal and reactive to light. RT scalp hematoma is painful to touch and he feels that increases in size.
- Will repeat head CT. Discussed with the nursing staff.
[2025-10-25] MEDS: LOPRESSOR PO (19:46)
[2025-10-25] MEDS: ZOSYN 50 IV (19:56)
[2025-10-25] MEDS: DICLOFENAC 1% TOPICAL GEL 100 GRAM TOPICAL (21:17)
[2025-10-25] MEDS: DICLOFENAC 1% TOPICAL GEL TOPICAL (21:27)
[2025-10-25] MEDS: COMPAZINE 5 MG IV (23:02)
[2025-10-26] VITALS (23 sets, daily range): BP systolic 90–130; BP diastolic 58–90; PULSE 81–83; BMI 25.3
[2025-10-26] MEDS: ZOSYN 50 IV ×2 (00:04→04:57)
--- NOTE | 2025-10-26 01:33 | PTCARENOTE ---
Upon assessment, pt febrile. Oriented to self and place only, disoriented to time. C/o urge to void. Unable to get OOB d/t positive orthos. Bladder scan for >400mls. St cath for 500mls. Pt continues with c/o urge to void. Able to use urinal to void
200ml, but continues with complaint. Will continue with bladder scans per protocol. IVF maintained. IV abx hung per MD orders. Pt c/o pain in b/l shoulders, R pinkie finger, back. Topical cream placed in some areas per DEC. [employer] contacted. No new
orders for pain control at this time. VS as documented. Assessment as documented. Call banuelos within reach. at bedside. Bed alarm in place for pt safety.
[2025-10-26 03:30] LABS: Hematocrit 29.8 % (39.0-52.0); Hemoglobin 9.7 g/dL (13.0-18.0); Mean Corp Hgb Conc. 32.6 g/dL (33.0-37.0); Mean Corpuscular Volume 88.2 fL (80.0-94.0); Platelet Count 69 10^3/uL (130-400); Red Cell Dist. Width 15.1 % (11.5-14.5)
[2025-10-26 04:01] LABS: ALT (SGPT) 24 U/L (0-50); AST (SGOT) 32 U/L (17-59); Albumin 2.9 g/dl (3.5-5.0); Alkaline Phosphatase 84 U/L (38-126); Blood Urea Nitrogen 29 mg/dl (9-20); Calcium 8.1 mg/dl (8.4-10.2); Carbon Dioxide 19 mmol/L (22-30); Chloride 106 mmol/L (98-107); Estimated Creatinine Clearance 81 ml/min; Glucose 137 mg/dl (70-99); Potassium 3.8 mmol/L (3.5-5.1); Sodium 133 mmol/L (135-145); Total Protein 5.6 g/dl (6.3-8.2); eGFR > 60.00
[2025-10-26 04:23] LABS: Cortisol, Random 26.2 ug/dl
[2025-10-26] MEDS: LR 1000 IV ×3 (05:38→17:19)
--- NOTE | 2025-10-26 05:43 | PTCARENOTE ---
Pt intermittently confused/disoriented, pt's at bedside reports that pt reported hallucinations to her, stating that the urinal on the counter was a person standing in the room. A[employer]ARI[employer] SPECIALIST notified. Temp 99.3 at this time. Pt very restless, but able
to be redirected. Reports understanding of reorientation, but continues with some confusion. Care ongoing.
[2025-10-26] MEDS: OFIRMEV 100 IV (06:11)
[2025-10-26 07:07] LABS: Nucleated Red Blood Cells % 0 % (-)
[2025-10-26] MEDS: LOPRESSOR 12.5 MG PO ×2 (08:31→20:40)
[2025-10-26] MEDS: ASPIR LOW (ENTERIC COATED) 81 MG PO (08:31)
[2025-10-26] MEDS: LEXAPRO 10 MG PO (08:31)
[2025-10-26] MEDS: DICLOFENAC 1% TOPICAL GEL 100 GRAM TOPICAL ×4 (08:33→20:41)
--- NOTE | 2025-10-26 08:36 | PHA.VAN.IN ---
Assessment
- Assessment
Renal Function: Unknown baseline
Maximum Temperature: 100.4
Minimum Temperature: 97.9
Concomitant Antimicrobials: Piperacillin-tazobactam
AUC Dosing Plan
- Dosing Variables
Dosing Weight (kg): 94.6
Dosing CrCl (ml/min): 81
Vd coefficient (L/kg): 0.7
- Empiric Dosing
Initial / Loading Dose: Vanc 2gm 10/25 at 1213
Maintenance Regimen: Vanc 1gm IV q12H
Estimated AUC (mcg*h/mL): 437
Estimated Peak (mcg*h/mL): 26.2
Estimated Trough (mcg/ml): 11.9
Estimated Half Life (H): 9.7
- Monitoring
No levels ordered at this time: Consider levels after 10/27 1800 dose
Pharmacokinetics Vancomycin I
- -
Patient Age: 60
Patient Sex: Male
Vancomycin Day #: 1
Indication: Bacteremia
Requesting Provider: Trena Schwartz
Height / Weight:
Height 6 ft 4 in
Actual Weight 94.6 kg
IBW in k.8
Adjusted BW in k.9
- Vital Signs / Lab Results
Temp Pulse Resp BP Pulse Ox
99.6 F 91 34 113/80 91
10/26/25 07:36 10/26/25 08:31 10/26/25 06:00 10/26/25 08:31 10/26/25 06:00
Lab Results - Hematology
10/25/25 10/26/25
08:37 03:16
WBC 4.8 4.6 L
Band Neutrophils 10 H
Lab Results - Chemistry
10/25/25 10/26/25
08:37 03:17
BUN 37 H 29 H
Creatinine 2.0 H 1.2
Estimated Creat Clear 49 81
Albumin 4.0 2.9 L
10/25/25 10/25/25 10/25/25
08:37 08:45 13:06
Lactic Acid 3.7 H Cancelled 1.3
10/25/25 10/25/25 10/26/25
16:17 20:17 00:17
Lactic Acid Cancelled Cancelled Cancelled
10/26/25
04:17
Lactic Acid Cancelled
Lab Results - Urine
10/25/25
13:36
Urine Nitrite (Reflex) Negative
Leukocyte Esterase Rfl 1+ A
Urine WBC (Reflex) 16-20 A
Ur Squamous Epith Cells 0-2
Urine Bacteria (Reflex) Many A
Microbiology Results
10/25/25 08:43 Blood Culture - Preliminary
Blood/Venous Positive culture in progress
Gram Stain - Final
10/25/25 08:37 Blood Culture - Preliminary
Blood/Venous Positive culture in progress
Gram Stain - Final
10/25/25 08:37 Influenza Types A & B (CAROLE) - Final
Nasal Swab Negative for Influenza A & B, NAAT
Negative results must be combined with clinical observations
and patient history.
Nucleic Acid Amplification test (NAAT)performed on the
e[employer] platform.
--- NOTE | 2025-10-26 08:53 | W.PN.HOSP.TC ---
Today's Communication/Plan
-
Gram+ bacteremia; started on vanc pending sensitivities
Echo
ID consult
Monitor back and finger pain; no splinter hem or osler nodules noted
Monitor RUQ pain improved
Lactic acid normalized
Assessment / Plan
Assessment / Plan
60yoM PMH afib secondary to valvular dx s/p MV replacement, nephrolithiasis, sepsis secondary to L knee infxn in May presenting with acute onset of diarrhea, body aches, chills, fever since Thursday afternoon 4 days ago.
10/25 Afebrile. Continues to be borderline hypotensive after 3L resuscitation. Whole body aches, RUQ tenderness. Nausea and vomiting. GB distention on CT. Head CT positive for subgaleal hematoma. WBC 4.8, 10% bands, BUN 37 Cr 2.0. Lactate 3.7 repeat
1.3. Thrombocytopenia, hx of low plts with infxn per outpt records. LFTs WNL. Lipase 67. Sepsis with GHULAM viral gastroenteritis vs biliary infection given distention on CT and RUQ tenderness. No Lymphadenopathy. CRP>270 ESR 39. UA pending. CXR not
indicative of acue cardiopulmonary process.
10/26 AFVSS. Overnight tachycardic and tachypneic w/ tmax 100.4, improved this morning vitals WNL. BC +gram positive cocci in clusters; hx MSSA. Continue on zosyn added vanc. ID consult. Echo for MV replacement. Repeat head CT with no acute
findings, dissipation of subgaleal hematoma. UC pending. MRSA screen pending. Ab US demonstrated distended GB but no stone findings; RUQ tenderness improved, continue watching. New R 5th finger pain without erythema; monitor for improvement,
encourage ice. Hgb dropped 12.1 to 9.7, no current source of bleeding vs dilutional. Ask nursing to monitor for hematochezia.
PLAN:
#sepsis
#nausea, vomiting, diarrhea
#lactic acidosis
- fluid resuscitation
- Supportive measures, Tylenol, zofran PRN
- Continue Zosyn pending abd US. Possible viral gastroenteritis
- UA pending
- CXR not indicative of acute cardiopulmonary process
- Gram+ cocci in lcusters on BCx2. pending sensitivities. started on vanc. Echo ordered
#RUQ tenderness
#splenomegaly
- GB distended and splenomegaly on CT, ordered Abd US
- LFTs WNL
- Lipase 67
- Ab US distended GB without stones. Continue to monitor w improved symptoms.
#prerenal GHULAM
#UTI
- fluid resuscitation
- Trend CMP
- Improved. Continue monitoring
- Pending UC
#thrombocytopenia
- hx outpt, trend plts
- no active bleeding so plan to monitor
- Stable
#chronic back pain
- PRN tylenol. Hold toradol given GHULAM
- Diclofenac gel
- 1 dose morphine
- Stable this morning
- 1 dose ofrimev given for general aches.
- Continue monitoring
- Possible MRI spine pending ID recs
#R 5th finger PIP pain
- continue to monitor pending ID recs
Code: Full
DVT prophylaxis: lovenox
Diet: Clears. advance as tolerated
Anticipated Discharge: > 48 hours
Subjective/Interval History
-
Date of Service: October 26, 2025
Pt reports feeling significantly better this morning. He reports overnight symptoms of hallucinations being distressed by these symptoms without hx. He reports no vomiting with mild nausea improved with compazine. No diarrhea since being here. Back
pain tolerable this morning. Pt reports R 5th finger pain to touch of PIP. Resovled RUQ pain. 1 episode of feeling warm overnight but improved from yesterday; no sweats or chills.
Objective Data
-
Labs:
Laboratory Results
10/26/25 10/26/25
03:16 03:17
WBC 4.6 L
Hgb 9.7 L
Hct 29.8 L
Plt Count 69 L
Sodium 133 L
Potassium 3.8
Chloride 106
Carbon Dioxide 19 L
BUN 29 H
Creatinine 1.2
Glucose 137 H
Calcium 8.1 L
Total Bilirubin 0.9
AST 32
ALT 24
Alkaline Phosphatase 84
Vital Signs:
Vital Signs
Temp Pulse Resp BP Pulse Ox
99.6 F 91 34 113/80 91
10/26/25 07:36 10/26/25 08:31 10/26/25 06:00 10/26/25 08:31 10/26/25 06:00
I&O
10/25/25 10/26/25 10/27/25
06:59 06:59 06:59
Intake Total 1950 / 1950
Output Total 1450 / 1450
Balance 500 / 500
Review of Systems
-
All other systems: Reviewed and negative (negative unless listed in HPI)
Physical Exam
-
General: Well Developed, Well Nourished, No Apparent Distress and Comfortable
HEENT: Normocephalic, Moist Mucous Membranes and Other (tender R hematoma, reduced from yesterday)
Respiratory: Clear to Auscultation and Non Labored Respirations
Cardiac: Regular Rhythm and S1/S2
GI: Soft, Nontender and Nondistended
Musculoskeletal: No Clubbing, No Cyanosis, No Edema and Other (R PIP tender, no erythema, arthritic)
Skin: Warm, Dry and Other (no visible splinter hemorrhages or osler nodules)
Neuro: AO x 3 and Nonfocal/Grossly Intact
Psych: Calm
--- NOTE | 2025-10-26 09:52 | PTCARENOTE ---
Positive blood cultures communicated to Dr. Topete at bedside with patient and family, repeat cultures sent.
[2025-10-26] MEDS: VANCOCIN 200 IV ×2 (10:13→17:06)
--- NOTE | 2025-10-26 10:17 | CON.ID ---
Consultation
-
Date/Time Consultation Requested: 10/26/25 9:02
Date/Time Consultation Performed: 10/26/25 10:17
Requesting Provider: Dr Schwartz
Performing Provider: Dr Cm
Reason for Consultation: bacteremia, h/o septic L knee joint
Chief Complaint / Past History
Chief Complaint
diarrhea, myalgais, fevers and chills
History of Present Illness
Mr Saha is a 60 year old amale with h/o MV repair, L knee septic joint due to MSSA May 2025 treated at [facility] with 4 weeks of cefazolin. He presented here yesterday for acute onset fevers, chills, myaglias and for the last 4 days which
progressed to diarrhea, nausea and vomiting, presyncope. Denies cough, rhinorrhea, rash, palpitations, SOB. He has chroinc pain and swelling of the right 5th digit however it is remarkably worse with 0 degree range of motion and erythema over the
PIP joint. He also reports chronic T6-T10 back pain worse over the last 3-4 weeks.
10/02/23 he underwent MV repair 10/15 returned to the hospital for systemic symptoms, pleuritic chest pain, found to be febrile; he was found to have a small right thoracic wound - mini thoracotomy site - without significant drainage, wound culture
with MSSA, blood cultures x2 negative CT chest/abd/pelvis with soft tissue thickening and SQ fat stranding R AL chest wall but no focal collection or abscess, small pericardial effusion and he was placed on a 7 day course of keflex and local care.
He was also diagnosed with pericarditis treated with colchicine and naprosyn. 12/02/23 seen in the office for right chest wall open, draining wound, underwent local debridement, CT chest 12/02 no abscess formation, soft tissue swelling and skin
thickening along epicardial pacing wires 12/23/23 he was seen outpatient for wound check of R lateral pacing wire site wound continued draining yellow, serous drainage, no erythema, redness or warmth around the wound, no fevers or chills. 01/08/24 he
was admitted for removal of the packing wire and TTE to evaluate pericardial effusion, he underwent full extraction of ventricular pacing wire and partial extraction of second pacing wire, i&D of granulomatous tissue and primary closure, no
complications, wires were sent for culture, Tissue culture again with MSSA, blood cultures were not done, pathology showed granulomatous growth, intraoperative TTE no pericardial effusion, wound was closed primarily. He does not appear to have been
prescribed any antibiotics though I do not see a d/c summary to confirm.
Since arrival this visit tmax 100.4, bp initially mildly hypotensive now stable, wbc initially 4.8 now 4.6, hgb 12.1, plt 72, L shift was noted,na 134, cr initially 2.0 from baseline of 0.8 now 1.2, crp >270, lfts wnl, covid ag negative, ct head w/o
IV contrast: no acute abnormality, abd us: gallbladder distended but no other signs of cholecystitis, otherwise unremarkable, cxr 10/25: no CP abnormality, CT a/p without IV or oral contrast: no definitive abnormality, distended gallbladder, had
syncopal episdoe at xray and hit his head, repeat CT head 10/26 small soft tissue edema and subgaleal hematoma R parietal scalp, two sets of blood cultures with s aureus, one repeat set in progress, currently on vancomycin and zosyn.
Past History
Additional Past Medical History:
afib not since MV replacement s/p ablation), Valvular Disease (MV replacement) and Other (L knee infection tx 4 wks abx over the summer, recurrent nephrolithiasis
Additional Past Surgical History:
L knee surgery 40 years ago
Allergy History:
adhesive tape Allergy (Verified 05/02/25 05:53)
Rash
Medications Reviewed: Yes
Social History
Tobacco: Non-Smoker
Alcohol: None
Personal:
Family History
Family History: Not Pertinent
Review of Systems
Review of Systems
A 12 point ROS was completed and negative except as noted: Yes
Constitutional: Reports Fever and Chills
EENT: Reports No Symptoms
Respiratory: Reports No Symptoms
Cardiac: Reports Syncope
Abdomen/GI: Reports Abdominal Pain, Nausea, Vomiting and Diarrhea
Musculoskeletal: Reports No Symptoms (generalized aches)
Skin: Reports No Symptoms and Rash (hemangioma birthmark, benign)
Neurological: Reports No Symptoms
Endocrine: Reports No Symptoms
Hematologic/Lymphatic: Reports No Symptoms
Vital Signs
Temp Pulse Resp BP Pulse Ox
99.6 F 91 34 113/80 91
10/26/25 07:36 10/26/25 08:31 10/26/25 06:00 10/26/25 08:31 10/26/25 06:00
Physical Exam
Physical Exam
Constitutional: No Acute Distress
Cardiovascular: Regular Rate and S1/S2; Negative Murmur or Rub
Pulmonary: Clear and Symmetric; Negative Wheezes, Rales or Rhonchi
Gastrointestinal: Soft, Non Tender, Non Distended and Normal Bowel Sounds
Extremities: Other (left knee mildly swollen, no erythema, warmth or tenderness, able to bear weight without complaint)
Musculoskeletal: Other (right 5th digit 0 degrees ROM, erythema/warmth over PIP joint); Negative Spinal Tenderness (with firm percussion)
Skin: Warm and Dry; Negative Rash or Jaundice
Neurological: Awake
Lab / Diagnostic Study Results
10/26/25 03:16
10/26/25 03:17
Abs Immat Gran (auto) 0.0 10^3/uL (0-0.05) 10/26/25 03:16
Absolute Neuts (auto) 4.0 10^3/uL (1.4-6.5) 10/26/25 03:16
Absolute Lymphs (auto) 0.2 10^3/uL (1.2-3.4) L 10/26/25 03:16
Absolute Monos (auto) 0.4 10^3/uL (0.1-0.6) 10/26/25 03:16
Absolute Basos (auto) 0.0 10^3/uL (0-0.2) 10/26/25 03:16
Total Counted 100 10/25/25 08:37
Immature Gran % 0.2 % (0-0.5) 10/26/25 03:16
Neutrophils % 86.5 % (42.2-75.2) H 10/26/25 03:16
Lymphocytes % 4.8 % (20.5-51.1) L 10/26/25 03:16
Monocytes % 8.3 % (1.7-9.3) 10/26/25 03:16
Eosinophils % 0.0 % (0-6) 10/26/25 03:16
Basophils % 0.2 % (0-2) 10/26/25 03:16
Abs Neuts (Manual) 4.4 10^3/uL (1.4-6.5) 10/25/25 08:37
Segmented Neutrophils 83 % (42-75) H 10/25/25 08:37
Band Neutrophils 10 % (0-3) H 10/25/25 08:37
Lymphocytes (Manual) 4 % (20-51) L 10/25/25 08:37
ESR 39 mm/hour (0-20) H 10/25/25 08:37
Lactic Acid Cancelled 10/26/25 04:17
C-Reactive Protein > 270.00 mg/L (0.0-10.00) H 10/25/25 08:37
Ur Squamous Epith Cells 0-2 /LPF (Few) 10/25/25 13:36
Microbiology Results
Micro:
10/26/25 09:25 Blood Culture - Pending
Blood/Venous
10/25/25 13:36 Urine Culture - Final
Urine NO GROWTH
10/25/25 08:37 Blood Culture - Preliminary
Blood/Venous Staphylococcus aureus
Gram Stain - Final
10/26/25 08:19 MRSA Screen - Pending
Nose
10/25/25 08:43 Blood Culture - Preliminary
Blood/Venous Positive culture in progress
Gram Stain - Final
10/25/25 08:37 Influenza Types A & B (CAROLE) - Final
Nasal Swab Negative for Influenza A & B, NAAT
Negative results must be combined with clinical observations
and patient history.
Nucleic Acid Amplification test (NAAT)performed on the
? [employer] platform.
Assessment / Plan
S aureus Bacteremia
Fevers/rigors
GHULAM - improving
Suspected septic joint of the right 5th digit
Possible thoracic OM/discitis
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
H/o spontaneous septic knee joint due to MSSA treated at [facility]
No hardwear in the body
- repeat blood cultures x2 today and then q 48 hours until persistently clear
- follow for final ID and sensitivities
- MRI right hand with and without contrast
- thoracic spine MRI with and without contrast
- TTE
- continue vancomycin at this time
- add cefazolin pending sensitivities, stop zosyn
--- NOTE | 2025-10-26 11:23 | PTCARENOTE ---
Addendum entered by Raquel Ibanez RN 10/26/25 13:27:
Dilaudid 1mg IV administered for severe pain, as per orders, and discussion with Resident Trena Schwartz. Patient stating that his pain level was cut in half, down to a 4 out of 10. Patient is sitting in chair at this time, tolerating full liquids
with son at bedside.
Original Note:
Patient out of bed to chair with 2 person assist. Tolerating clear liquid diet. Patient complaining of pain on neck and shoulders (severe), also pain on right little finger(only when touched or moves). MRI ordered today, notified medical device assembler of
pain management issues.
[2025-10-26] MEDS: ANCEF 10 IV ×2 (12:04→20:41)
[2025-10-26] MEDS: DILAUDID 1 MG IV (12:05)
--- NOTE | 2025-10-26 14:23 | PTCARENOTE ---
Addendum entered by Raquel Ibanez RN 10/26/25 17:44:
Oxygen removed when patient woke up and his pulse ox was in the low 90s but dropped to 88% on room air while sitting up in bed. Respiratory rate 23, no cough, lungs clear, diminished at bases. Oxygen reapplied and pule ox 97% on 2 liters at this
time. Cristopher gibbons hospitalist.
Original Note:
Patient is sleeping, pulse ox 87% on room air. Notified medical office administrator. Oxygen at 2 liters via nasal cannula applied. Pulse ox is now 93% when sleeping.
[2025-10-26] MEDS: TYLENOL 650 MG PO (17:02)
[2025-10-26] MEDS: LOVENOX 40 MG SC (17:04)
--- NOTE | 2025-10-26 18:43 | PTCARENOTE ---
Patient had clear liquids for breakfast, full liquids for lunch without any issues. Advanced to regular diet for dinner and complained of heartburn with the fruitcup. Patient sitting up high in bed. No nausea or vomiting.
[2025-10-26] MEDS: DILAUDID 0.5 MG IV (21:13)
[2025-10-27] VITALS (17 sets, daily range): BP systolic 99–134; BP diastolic 62–103; PULSE 82–92
[2025-10-27] MEDS: LR 1000 IV ×3 (00:49→17:25)
[2025-10-27] MEDS: DILAUDID 1 MG IV ×4 (02:53→20:31)
--- NOTE | 2025-10-27 03:10 | PTCARENOTE ---
patient sitting on side of bed to use urinal. Patient complaining of severe pain 7/10 in neck shoulders and right pinky finger. prn pain medication given, see mar. Patient can be a little confused at times. bed alarm on. assessment and vitals
charted. continuing to monitor. call banuelos in reach.
[2025-10-27] MEDS: ANCEF 10 IV ×3 (04:45→20:25)
[2025-10-27] MEDS: VANCOCIN 200 IV ×2 (05:10→17:23)
[2025-10-27 05:48] LABS: Hematocrit 27.6 % (39.0-52.0); Hemoglobin 9.2 g/dL (13.0-18.0); Mean Corp Hgb Conc. 33.3 g/dL (33.0-37.0); Mean Corpuscular Volume 85.2 fL (80.0-94.0); Nucleated Red Blood Cells % 0 % (-); Platelet Count 83 10^3/uL (130-400); Red Cell Dist. Width 15.3 % (11.5-14.5)
[2025-10-27 05:56] LABS: ALT (SGPT) 20 U/L (0-50); AST (SGOT) 28 U/L (17-59); Albumin 2.7 g/dl (3.5-5.0); Alkaline Phosphatase 86 U/L (38-126); Blood Urea Nitrogen 16 mg/dl (9-20); Calcium 8.4 mg/dl (8.4-10.2); Carbon Dioxide 24 mmol/L (22-30); Chloride 106 mmol/L (98-107); Estimated Creatinine Clearance > 125 ml/min; Glucose 108 mg/dl (70-99); Potassium 3.4 mmol/L (3.5-5.1); Sodium 136 mmol/L (135-145); Total Protein 5.4 g/dl (6.3-8.2); eGFR > 60.00
[2025-10-27] MEDS: KCL 40 MEQ PO (08:14)
[2025-10-27] MEDS: TYLENOL 650 MG PO (08:14)
[2025-10-27] MEDS: LOPRESSOR 12.5 MG PO ×2 (08:16→20:25)
[2025-10-27] MEDS: ASPIR LOW (ENTERIC COATED) 81 MG PO (08:16)
[2025-10-27] MEDS: DICLOFENAC 1% TOPICAL GEL 100 GRAM TOPICAL ×3 (08:16→17:27)
[2025-10-27] MEDS: LEXAPRO 10 MG PO (08:16)
[2025-10-27] MEDS: PROTONIX 40 MG PO (08:20)
--- NOTE | 2025-10-27 08:38 | PHA.VAN.FU ---
Vancomycin Assessment / Plan
- Assessment
Renal Function: Stable
WBC's are: WNL
In the past 24 hrs, patient has been: Afebrile
Concomitant Antimicrobials: cefazolin
- Dosing Plan
Continue: vancomycin 1000 mg q12h
- Monitoring Plan
Peak Level: 12.26 @2100
Trough Level: 12.27 @ 0530
- Follow Up
Pharmacy will continue to follow.
Vancomycin Follow UP
- -
Patient Age: 60
Patient Sex: Male
Vancomycin Day #: 2
Indication: Bacteremia
Requesting Provider: Trena Schwartz
Height / Weight:
Height 6 ft 4 in
Actual Weight 94.1 kg
IBW in k.8
Adjusted BW in k.9
- Vital Signs / Lab Results
Temp Pulse Resp BP Pulse Ox
98.2 F 83 25 134/78 96
10/27/25 07:53 10/27/25 06:00 10/27/25 06:00 10/27/25 06:00 10/27/25 06:00
Lab Results - Hematology
10/25/25 10/26/25 10/27/25
08:37 03:16 04:54
WBC 4.8 4.6 L 6.1
Band Neutrophils 10 H
Lab Results - Chemistry
10/25/25 10/26/25 10/27/25
08:37 03:17 04:54
BUN 37 H 29 H 16
Creatinine 2.0 H 1.2 0.7
Estimated Creat Clear 49 81 > 125
Albumin 4.0 2.9 L 2.7 L
10/25/25 10/25/25 10/25/25
08:37 08:45 13:06
Lactic Acid 3.7 H Cancelled 1.3
10/25/25 10/25/25 10/26/25
16:17 20:17 00:17
Lactic Acid Cancelled Cancelled Cancelled
10/26/25
04:17
Lactic Acid Cancelled
Microbiology Results
10/25/25 13:36 Urine Culture - Final
Urine NO GROWTH
10/25/25 08:37 Blood Culture - Preliminary
Blood/Venous Staphylococcus aureus
Gram Stain - Final
10/25/25 08:43 Blood Culture - Preliminary
Blood/Venous Positive culture in progress
Gram Stain - Final
10/25/25 08:37 Influenza Types A & B (CAROLE) - Final
Nasal Swab Negative for Influenza A & B, NAAT
Negative results must be combined with clinical observations
and patient history.
Nucleic Acid Amplification test (NAAT)performed on the
[employer] platform.
--- NOTE | 2025-10-27 09:12 | W.PN.HOSP.TC ---
Today's Communication/Plan
-
MRI today
IS
Assessment / Plan
Assessment / Plan
60yoM PMH afib secondary to valvular dx s/p MV replacement, nephrolithiasis, sepsis secondary to L knee infxn in May presenting with acute onset of diarrhea, body aches, chills, fever since Thursday afternoon 4 days ago.
10/25 Afebrile. Continues to be borderline hypotensive after 3L resuscitation. Whole body aches, RUQ tenderness. Nausea and vomiting. GB distention on CT. Head CT positive for subgaleal hematoma. WBC 4.8, 10% bands, BUN 37 Cr 2.0. Lactate 3.7 repeat
1.3. Thrombocytopenia, hx of low plts with infxn per outpt records. LFTs WNL. Lipase 67. Sepsis with GHULAM viral gastroenteritis vs biliary infection given distention on CT and RUQ tenderness. No Lymphadenopathy. CRP>270 ESR 39. UA pending. CXR not
indicative of acue cardiopulmonary process.
10/26 AFVSS. Overnight tachycardic and tachypneic w/ tmax 100.4, improved this morning vitals WNL. BC +gram positive cocci in clusters; hx MSSA. Continue on zosyn added vanc. ID consult. Echo for MV replacement. Repeat head CT with no acute
findings, dissipation of subgaleal hematoma. UC pending. MRSA screen pending. Ab US demonstrated distended GB but no stone findings; RUQ tenderness improved, continue watching. New R 5th finger pain without erythema; monitor for improvement,
encourage ice. Hgb dropped 12.1 to 9.7, no current source of bleeding vs dilutional. Ask nursing to monitor for hematochezia.
10/27 AFVSS. New LUQ pain in addition to back and finger pain. awaiting sensitivities, continues on abx. MRI hand and spine today. Cr improved 0.7, GHULAM resolved. CXR. Intermittent hypoxia with sleep; oxygen for sleeping, recommend outpt sleep study.
New sore throat; encouraged PO intake due to dry air in hospital. Continue monitoring. Standing tylenol.
PLAN:
#sepsis
#nausea, vomiting, diarrhea
#lactic acidosis
- fluid resuscitation
- Supportive measures, Tylenol, zofran PRN
- Continue Zosyn pending abd US. Possible viral gastroenteritis
- UA pending
- CXR not indicative of acute cardiopulmonary process
- Gram+ cocci in lcusters on BCx2. pending sensitivities. started on vanc. Echo today
- MRI today
#RUQ tenderness
#splenomegaly
- GB distended and splenomegaly on CT, ordered Abd US
- LFTs WNL
- Lipase 67
- Ab US distended GB without stones. Continue to monitor w improved symptoms.
- New LUQ cramps. Monitor. Made tylenol standing
#prerenal GHULAM
- fluid resuscitation
- Trend CMP
- Improved. Continue monitoring
- UC NGTD
#thrombocytopenia
- hx outpt, trend plts
- no active bleeding so plan to monitor
- Stable
#chronic back pain
- PRN tylenol. Hold toradol given GHULAM
- Diclofenac gel
- 1 dose morphine
- Stable this morning
- 1 dose ofrimev given for general aches.
- Continue monitoring
- MRI spine pending per ID recs
#R 5th finger PIP pain
- continue to monitor
- hand MRI pending
Code: Full
DVT prophylaxis: lovenox
Diet: Full
Anticipated Discharge: 24 - 48 hours
Subjective/Interval History
-
Date of Service: October 27, 2025
Pt reports sleeping well and feeling a bit better than yesterday. However, he complains of continued back pain and R 5th finger pain with new L sided cramps. He reports severe L cramps that started this morning. Normal BM yesterday. reports new sore
throat.
Objective Data
-
Labs:
Laboratory Results
10/27/25
04:54
WBC 6.1
Hgb 9.2 L
Hct 27.6 L
Plt Count 83 L D
Sodium 136
Potassium 3.4 L
Chloride 106
Carbon Dioxide 24
BUN 16
Creatinine 0.7
Glucose 108 H
Calcium 8.4
Total Bilirubin 0.6
AST 28
ALT 20
Alkaline Phosphatase 86
Vital Signs:
Vital Signs
Temp Pulse Resp BP Pulse Ox
98.2 F 83 25 134/78 96
10/27/25 07:53 10/27/25 06:00 10/27/25 06:00 10/27/25 06:00 10/27/25 06:00
I&O
10/26/25 10/27/25 10/28/25
06:59 06:59 06:59
Intake Total 1950 / 1950 3600 / 3600
Output Total 1450 / 1450 1900 / 1900
Balance 500 / 500 1700 / 1700
Physical Exam
-
General: Well Developed and Well Nourished
HEENT: Normocephalic, Moist Mucous Membranes and Other (tender R head hematoma)
Respiratory: Clear to Auscultation and Non Labored Respirations
Cardiac: Regular Rhythm and S1/S2
GI: Soft, Nondistended and Tender (LUQ)
Musculoskeletal: Other (trace bilateral LE edema; R 5th finger PIP tender)
Skin: Warm and Dry
Neuro: AO x 3 and Nonfocal/Grossly Intact
--- NOTE | 2025-10-27 10:37 | W.PN.ID1 ---
Date of Service
Date of Service: October 27, 2025
Today's Communication
- continue vancomycin at this time
- add cefazolin pending sensitivities
Assessment / Plan
S aureus Bacteremia
Fevers - resolved
GHULAM - resolved
Suspected septic joint of the right 5th digit
Possible thoracic OM/discitis
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
H/o spontaneous septic knee joint due to MSSA treated at [facility]
No hardwear in the body
- S aureus bacteremia 10/25
- repeat blood cultures q 48 hours until persistently clear
- follow for final ID and sensitivities
- await MRI right hand with and without contrast
- await thoracic spine MRI with and without contrast
- TTE
- continue vancomycin at this time
- add cefazolin pending sensitivities
Chief Complaint
-: Bacteremia (S aureus)
Subjective / Review of Systems
fever resolved
bp stable
severe pain in shoulder and pinky ongoing
Vital Signs / Physical Exam
Vital Signs
Vital Signs
Temp Pulse Resp BP Pulse Ox
98.2 F 80 24 121/78 98
10/27/25 07:53 10/27/25 08:00 10/27/25 08:00 10/27/25 08:00 10/27/25 08:00
Physical Exam
Constitutional: No Acute Distress
Cardiovascular: Regular Rate and S1/S2; Negative Murmur or Rub
Pulmonary: Clear and Symmetric; Negative Wheezes or Rales
Gastrointestinal: Soft, Non Tender, Non Distended and Normal Bowel Sounds
Skin: Warm and Dry; Negative Rash or Jaundice
Objective Data
Lab Data
Lab Results
10/27/25 04:54
10/27/25 04:54
ESR 39 mm/hour (0-20) H 10/25/25 08:37
Estimated Creat Clear > 125 ml/min 10/27/25 04:54
Lactic Acid Cancelled 10/26/25 04:17
Total Bilirubin 0.6 mg/dl (0.2-1.3) 10/27/25 04:54
AST 28 U/L (17-59) 10/27/25 04:54
ALT 20 U/L (0-50) 10/27/25 04:54
Alkaline Phosphatase 86 U/L (38-126) 10/27/25 04:54
C-Reactive Protein > 270.00 mg/L (0.0-10.00) H 10/25/25 08:37
Most recent labs reviewed.
Micro Results:
10/26/25 09:25 Blood Culture - Preliminary
Blood/Venous No Growth in 24 hours- Final report to follow
10/25/25 08:43 Blood Culture - Preliminary
Blood/Venous Positive culture in progress
Gram Stain - Final
10/25/25 08:37 Blood Culture - Preliminary
Blood/Venous Staphylococcus aureus
Gram Stain - Final
10/26/25 10:10 Blood Culture - Pending
Blood/Venous
10/25/25 13:36 Urine Culture - Final
Urine NO GROWTH
10/26/25 08:19 MRSA Screen - Pending
Nose
10/25/25 08:37 Influenza Types A & B (CAROLE) - Final
Nasal Swab Negative for Influenza A & B, NAAT
Negative results must be combined with clinical observations
and patient history.
Nucleic Acid Amplification test (NAAT)performed on the
[employer] platform.
[2025-10-27] MEDS: TYLENOL 1000 MG PO ×3 (13:18→23:20)
--- NOTE | 2025-10-27 16:01 | CM ---
F/U: Patient getting MRI today, on Abx, still being monitored. CM to follow up on DC needs. PLAN: TBD, anticipate home no needs vs SNF.
[2025-10-27] MEDS: LOVENOX 40 MG SC (17:27)
--- NOTE | 2025-10-27 17:48 | PTCARENOTE ---
Pt received in bed @ 0700. Scheduled Tylenol administered. Afebrile, but pt did display rigors. Oral temperature 98.4F. PRN Dilaudid given for pain. On follow up pain assessment pt found to be diaphoretic. Rigors subsided. Oral temp 98.8F. SaO2 98%
on 2L. Incentive spiromete provided, witnessed for 1500ml. MAP remains > 65 without pressors.
[2025-10-27] MEDS: DICLOFENAC 1% TOPICAL GEL TOPICAL (21:22)
[2025-10-28] VITALS (13 sets, daily range): BP systolic 102–145; BP diastolic 66–85
[2025-10-28] MEDS: ANCEF 10 IV ×3 (03:30→20:06)
[2025-10-28] MEDS: DILAUDID 1 MG IV ×3 (03:33→23:07)
[2025-10-28 05:42] LABS: Hematocrit 26.0 % (39.0-52.0); Hemoglobin 8.8 g/dL (13.0-18.0); Mean Corp Hgb Conc. 33.8 g/dL (33.0-37.0); Mean Corpuscular Volume 85.2 fL (80.0-94.0); Nucleated Red Blood Cells % 0 % (-); Platelet Count 89 10^3/uL (130-400); Red Cell Dist. Width 15.7 % (11.5-14.5)
[2025-10-28 06:04] LABS: ALT (SGPT) 19 U/L (0-50); AST (SGOT) 31 U/L (17-59); Albumin 2.5 g/dl (3.5-5.0); Alkaline Phosphatase 95 U/L (38-126); Blood Urea Nitrogen 13 mg/dl (9-20); Calcium 8.2 mg/dl (8.4-10.2); Carbon Dioxide 27 mmol/L (22-30); Chloride 105 mmol/L (98-107); Estimated Creatinine Clearance > 125 ml/min; Glucose 89 mg/dl (70-99); Potassium 3.6 mmol/L (3.5-5.1); Sodium 138 mmol/L (135-145); Total Protein 5.2 g/dl (6.3-8.2); eGFR > 60.00
[2025-10-28] MEDS: VANCOCIN 200 IV (06:19)
[2025-10-28] MEDS: TYLENOL PO (06:20)
--- NOTE | 2025-10-28 07:06 | W.PN.HOSP.TC ---
Today's Communication/Plan
-
Cardiology consult for DAVIE
MRI hand
CT abd w contrast
Supportive measures
Assessment / Plan
Assessment / Plan
60yoM PMH afib secondary to valvular dx s/p MV replacement, nephrolithiasis, sepsis secondary to L knee infxn in May presenting with acute onset of diarrhea, body aches, chills, fever since Thursday afternoon 4 days ago.
10/25 Afebrile. Continues to be borderline hypotensive after 3L resuscitation. Whole body aches, RUQ tenderness. Nausea and vomiting. GB distention on CT. Head CT positive for subgaleal hematoma. WBC 4.8, 10% bands, BUN 37 Cr 2.0. Lactate 3.7 repeat
1.3. Thrombocytopenia, hx of low plts with infxn per outpt records. LFTs WNL. Lipase 67. Sepsis with GHULAM viral gastroenteritis vs biliary infection given distention on CT and RUQ tenderness. No Lymphadenopathy. CRP>270 ESR 39. UA pending. CXR not
indicative of acue cardiopulmonary process.
10/26 AFVSS. Overnight tachycardic and tachypneic w/ tmax 100.4, improved this morning vitals WNL. BC +gram positive cocci in clusters; hx MSSA. Continue on zosyn added vanc. ID consult. Echo for MV replacement. Repeat head CT with no acute
findings, dissipation of subgaleal hematoma. UC pending. MRSA screen pending. Ab US demonstrated distended GB but no stone findings; RUQ tenderness improved, continue watching. New R 5th finger pain without erythema; monitor for improvement,
encourage ice. Hgb dropped 12.1 to 9.7, no current source of bleeding vs dilutional. Ask nursing to monitor for hematochezia.
10/27 AFVSS. New LUQ pain in addition to back and finger pain. awaiting sensitivities, continues on abx. MRI hand and spine today. Cr improved 0.7, GHULAM resolved. CXR. Intermittent hypoxia with sleep; oxygen for sleeping, recommend outpt sleep study.
New sore throat; encouraged PO intake due to dry air in hospital. Continue monitoring. Standing tylenol.
10/28 AFVSS until pt experienced episode of rigors with tachycardia, tachypnea, fever 102.9. Episode of blurry vision with defecation. TTE demonstrated no signs fo endocarditis. LUQ pain concern for abscess, repeat CT abd/pelvis with contrast. R 5th
finger without erythema or worsened pain. Still high suspicion for endocarditis given rigors and variable pain throughout body. CMP WNL. Seon set of NGTD, repeated today. Hg continues to downtrend without source bleed vs dilutional given
incremental and high RDW. Thoracic MRI demonstrated no acute abnormality. DAVIE planned for thursday
PLAN:
#sepsis
#nausea, vomiting, diarrhea
#lactic acidosis
- fluid resuscitation
- Supportive measures, Tylenol, zofran PRN
- Continue Zosyn pending abd US. Possible viral gastroenteritis
- UA pending
- CXR not indicative of acute cardiopulmonary process
- Gram+ cocci in lcusters on BCx2. pending sensitivities. started on vanc. Plan for DAVIE
- MRI today of hand
#RUQ tenderness
#splenomegaly
- GB distended and splenomegaly on CT, ordered Abd US
- LFTs WNL
- Lipase 67
- Ab US distended GB without stones. Continue to monitor w improved symptoms.
- New LUQ cramps. Monitor. Made tylenol standing
- Repeat CT abd with IV contrast to look for abscess/source
#prerenal GHULAM
- fluid resuscitation
- Trend CMP
- Improved. Continue monitoring
- UC NGTD
#thrombocytopenia
- hx outpt, trend plts
- no active bleeding so plan to monitor
- Stable
#chronic back pain
- PRN tylenol. Hold toradol given GHULAM
- Diclofenac gel
- 1 dose morphine
- Stable this morning
- 1 dose ofrimev given for general aches.
- Continue monitoring
- MRI spine no abnormality
#R 5th finger PIP pain
- continue to monitor
- hand MRI pending
Code: Full
DVT prophylaxis: lovenox
Diet: Full
Anticipated Discharge: > 48 hours
Subjective/Interval History
-
Date of Service: October 28, 2025
Pt reports continued LUQ pain and cramping intermittent throughout the day. He reports stable back and neck chronic pain. While in the room, pt started rigoring with full body shakes. Initially reported he could not tell if he was cold but then
became very cold.
Pt also reports episode of blurry vision with defecation.
Objective Data
-
Labs:
Laboratory Results
10/28/25
05:07
WBC 4.4 L
Hgb 8.8 L
Hct 26.0 L
Plt Count 89 L
Sodium 138
Potassium 3.6
Chloride 105
Carbon Dioxide 27
BUN 13
Creatinine 0.7
Glucose 89
Calcium 8.2 L
Total Bilirubin 0.5
AST 31
ALT 19
Alkaline Phosphatase 95
Vital Signs:
Vital Signs
Temp Pulse Resp BP Pulse Ox
97.7 F 75 13 113/80 98
10/28/25 03:36 10/28/25 06:00 10/28/25 06:00 10/28/25 06:00 10/28/25 06:00
I&O
10/27/25 10/28/25 10/29/25
06:59 06:59 06:59
Intake Total 3600 / 3600
Output Total 1900 / 1900 700 / 700
Balance 1700 / 1700 -700 / -700
Physical Exam
-
General: Appears in Distress
HEENT: Normocephalic, Moist Mucous Membranes and Other (tender hematoma on head)
Respiratory: Clear to Auscultation and Non Labored Respirations (tachypneic with rigors)
Cardiac: Regular Rhythm (tachycardic with rigors) and S1/S2
GI: Soft, Nondistended and Tender (LUQ)
Musculoskeletal: No Edema and Other (no splinter hem or osler nodules)
Skin: Warm and Dry
Neuro: AO x 3 and Nonfocal/Grossly Intact
--- NOTE | 2025-10-28 07:57 | PHA.VAN.FU ---
Vancomycin Assessment / Plan
- Assessment
Renal Function: Stable
WBC's are: Stable
In the past 24 hrs, patient has been: Afebrile
Concomitant Antimicrobials: ANCEF
- Assessment - Trough Based Monitoring
Trough Value: 7.3
Level Today was: Subtherapeutic
PEAK WAS NOT DRAWN
- Dosing Plan
Adjust Regimen to: 1500MG Q12H
New Regimen Predicts: AUC (555), Peak (35.1), Trough (14)
- Monitoring Plan
Random Level: 10/29 IN AM
- Follow Up
Pharmacy will continue to follow.
Vancomycin Follow UP
- -
Patient Age: 60
Patient Sex: Male
Vancomycin Day #: 3
Indication: Bacteremia
Requesting Provider: Trena Schwartz
Height / Weight:
Height 6 ft 4 in
Actual Weight 94.1 kg
IBW in k.8
Adjusted BW in k.9
- Vital Signs / Lab Results
Temp Pulse Resp BP Pulse Ox
97.7 F 75 13 113/80 98
10/28/25 03:36 10/28/25 06:00 10/28/25 06:00 10/28/25 06:00 10/28/25 06:00
Lab Results - Hematology
10/25/25 10/26/25 10/27/25
08:37 03:16 04:54
WBC 4.8 4.6 L 6.1
Band Neutrophils 10 H
10/28/25
05:07
WBC 4.4 L
Band Neutrophils
Lab Results - Chemistry
10/25/25 10/26/25 10/27/25
08:37 03:17 04:54
BUN 37 H 29 H 16
Creatinine 2.0 H 1.2 0.7
Estimated Creat Clear 49 81 > 125
Albumin 4.0 2.9 L 2.7 L
10/28/25
05:07
BUN 13
Creatinine 0.7
Estimated Creat Clear > 125
Albumin 2.5 L
10/25/25 10/25/25 10/25/25
08:37 08:45 13:06
Lactic Acid 3.7 H Cancelled 1.3
10/25/25 10/25/25 10/26/25
16:17 20:17 00:17
Lactic Acid Cancelled Cancelled Cancelled
10/26/25
04:17
Lactic Acid Cancelled
Microbiology Results
10/26/25 08:19 MRSA Screen - Final
Nose No Methicillin Resistant Staphylococcus aureus isolated.
10/26/25 10:10 Blood Culture - Preliminary
Blood/Venous No Growth in 24 hours- Final report to follow
10/26/25 09:25 Blood Culture - Preliminary
Blood/Venous No Growth in 24 hours- Final report to follow
10/25/25 08:43 Blood Culture - Preliminary
Blood/Venous Positive culture in progress
Gram Stain - Final
10/25/25 08:37 Blood Culture - Preliminary
Blood/Venous Staphylococcus aureus
Gram Stain - Final
10/25/25 13:36 Urine Culture - Final
Urine NO GROWTH
Therapeutic Drug Monitoring
Vancomycin Peak Cancelled 10/27/25 21:00
Vancomycin Trough 7.3 ug/ml (5-20) 10/28/25 05:07
[2025-10-28] MEDS: VANCOCIN HCL 500 MG 100 IV (08:39)
[2025-10-28] MEDS: LOPRESSOR 12.5 MG PO ×2 (08:40→20:06)
[2025-10-28] MEDS: LEXAPRO 10 MG PO (08:40)
[2025-10-28] MEDS: ASPIR LOW (ENTERIC COATED) 81 MG PO (08:42)
[2025-10-28] MEDS: DICLOFENAC 1% TOPICAL GEL 100 GRAM TOPICAL ×4 (08:43→21:19)
--- NOTE | 2025-10-28 08:59 | W.PN.ID1 ---
Date of Service
Date of Service: October 28, 2025
Today's Communication
c/w cefazolin
follow blood cultures
Assessment / Plan
S aureus Bacteremia
Fevers - resolved
GHULAM - resolved
MV repair
Suspected septic joint of the right 5th digit
Possible thoracic OM/discitis
Possible endocarditis
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
H/o spontaneous septic knee joint due to MSSA treated at [facility]
No hardwear in the body
- S aureus bacteremia 10/25
- 10/26 blood cultures no growth at ~48 hrs
- await MRI right hand with and without contrast
- thoracic spine MRI with and without contrast no lesions
- TTE - MVR no vegetations; DAVIE thursday
- will follow up repeat imaging of the abdomen
- stop vancomycin at this time
- c/w cefazolin
- anticipate at least two and most likely 6 weeks of IV antibiotics
Chief Complaint
-: Bacteremia (S aureus)
Subjective / Review of Systems
afebrile
bp stable
awaiting MRI hand
rigors reported this AM when tylenol wore off, T to 102.6
L abdominal pain
Vital Signs / Physical Exam
Vital Signs
Vital Signs
Temp Pulse Resp BP Pulse Ox
98.5 F 75 13 113/80 98
10/28/25 07:20 10/28/25 06:00 10/28/25 06:00 10/28/25 06:00 10/28/25 06:00
Physical Exam
Constitutional: No Acute Distress
Cardiovascular: Regular Rate and S1/S2; Negative Murmur or Rub
Pulmonary: Clear and Symmetric; Negative Wheezes or Rales
Gastrointestinal: Soft, Tender (LUQ), Non Distended and Normal Bowel Sounds
Skin: Warm and Dry; Negative Rash or Jaundice
Objective Data
Lab Data
Lab Results
10/28/25 05:07
10/28/25 05:07
ESR 39 mm/hour (0-20) H 10/25/25 08:37
Estimated Creat Clear > 125 ml/min 10/28/25 05:07
Lactic Acid Cancelled 10/26/25 04:17
Total Bilirubin 0.5 mg/dl (0.2-1.3) 10/28/25 05:07
AST 31 U/L (17-59) 10/28/25 05:07
ALT 19 U/L (0-50) 10/28/25 05:07
Alkaline Phosphatase 95 U/L (38-126) 10/28/25 05:07
C-Reactive Protein > 270.00 mg/L (0.0-10.00) H 10/25/25 08:37
Most recent labs reviewed.
L shift resolved
Micro Results:
10/25/25 08:43 Blood Culture - Final
Blood/Venous S aureus-Methicillin Sensitive
Gram Stain - Final
10/25/25 08:37 Blood Culture - Final
Blood/Venous S aureus-Methicillin Sensitive
Gram Stain - Final
10/28/25 05:07 Blood Culture - Pending
Blood/Venous
10/28/25 05:07 Blood Culture - Pending
Blood/Venous
10/26/25 08:19 MRSA Screen - Final
Nose No Methicillin Resistant Staphylococcus aureus isolated.
10/26/25 10:10 Blood Culture - Preliminary
Blood/Venous No Growth in 24 hours- Final report to follow
10/26/25 09:25 Blood Culture - Preliminary
Blood/Venous No Growth in 24 hours- Final report to follow
10/25/25 13:36 Urine Culture - Final
Urine NO GROWTH
10/25/25 08:37 Influenza Types A & B (CAROLE) - Final
Nasal Swab Negative for Influenza A & B, NAAT
Negative results must be combined with clinical observations
and patient history.
Nucleic Acid Amplification test (NAAT)performed on the
[employer] platform.
MRI: Report Reviewed (thoracic spine MRI: no evidence of discitis/osteomyelitis within the thoracic spine.)
Care Review
Total Time Spent with Patient (in minutes): Dr Efrem Batres abdominal tenderness
[2025-10-28] MEDS: DILAUDID 0.5 MG IV ×3 (09:05→20:10)
[2025-10-28] MEDS: OFIRMEV 100 IV (09:14)
--- NOTE | 2025-10-28 09:48 | CON.CAR ---
Consultation
Consultation Request
Date/Time Consultation Requested: 10/28/25
Date/Time Consultation Performed: 10/28/25
Requesting Provider: Lana
Performing Provider: Krys
Reason for Consultation: bacteremia
Medical History
-
Chief Complaint: fever
History of Present Illness:
60-year-old man past medical history of mitral valve repair in 2022 who presents with persistent fevers and was found to be bacteremic. Cardiology is consulted to arrange for transesophageal echo to evaluate for infectious endocarditis.
Patient presented 10/25 after several days of persistent fevers. He was found to have MSSA bacteremia and was started on broad-spectrum antibiotics. Subsequent cultures from 10/26 showed no growth to date.
Underwent imaging to assess for underlying source including CT abdomen/pelvis as well as MRI of the spine both of which were unrevealing.
With concern for infectious endocarditis transthoracic echocardiogram was performed but did not identify any obvious vegetation.
PMHx/PSHx:
Severe MR s/p mitral valve repair (34mm SimuPlus band and 3 pairs of CV4 neochordoplasty to P2/P3, cleft closure), full left atrial MAZE with TEJ Exclusion 10/02/23
Paroxysmal atrial fibrillation
s/p CV 03/12/2017, 01/2023, 07/30/2023
Chronic anticoagulation on Eliquis
Nonischemic CM, EF 45-50% by echo 09/2023
Hypertension
Nephrolithiasis with prior urethral stenting 2016
Obstructive sleep apnea
Chronic thrombocytopenia
GERD
Past Medical History
Past Medical History: Other (as above)
Past Surgical History: Other (as above)
Social History
Tobacco: Non-Smoker
Personal:
Employment: Retired
Family History
Family History: Reviewed & Not Pertinent
Allergies / Home Medications
Allergy/AdvReac Type Severity Reaction Status Date / Time
adhesive tape Allergy Rash Verified 05/02/25 05:53
�Medication �Instructions �Recorded �Confirmed �Type
Voltaren 1 applic topical QIDPRN PRN apply 10/25/25 10/25/25 History
to right pinky finger joint
aspirin 81 mg tablet,delayed 81 mg PO DAILY Blood Clot 10/25/25 10/25/25 History
release Prevention/Tx
escitalopram oxalate 10 mg tablet 10 mg PO DAILY Mental 10/25/25 10/25/25 History
Health/Anxiety
metoprolol tartrate 25 mg tablet 12.5 mg PO BID Blood Pressure 10/25/25 10/25/25 History
tadalafil 5 mg tablet 5 mg PO DAILY 10/25/25 10/25/25 History
Review of Systems
-
History Source: Patient
All other systems: Negative unless noted
Physical Exam
Vital Signs
Temp Pulse Resp BP Pulse Ox
102.6 F H 84 22 145/85 95
10/28/25 09:23 10/28/25 08:54 10/28/25 08:54 10/28/25 08:54 10/28/25 08:54
Lab Results
10/28/25 05:07
10/28/25 05:07
Physical Exam
General: Well Developed
HEENT: Normocephalic
Respiratory: Clear
Cardiac: S1/S2
GI: Soft
Musculoskeletal: No Edema
Skin: Warm and Dry
Neuro: Awake
Psych: Calm
Impression / Plan
-
PCP: Dr. Tolbert
Spinning Lathe Operator: Dr. Bowers
Impression:
Presented with chest pain
Elevated troponin, peaked 0.072
Leukocytosis and fever
Severe MR s/p mitral valve repair (34mm SimuPlus band and 3 pairs of CV4 neochordoplasty to P2/P3, cleft closure) 10/02/2023
Paroxysmal atrial fibrillation
s/p CV 03/12/2017, 01/2023, 07/30/2023
s/p MAZE and TEJ exclusion 10/02/2023hronic anticoagulation on Eliquis
Nonischemic CM, EF 45-50% by echo 09/2023
Hypertension
Nephrolithiasis with prior urethral stenting 2016
Obstructive sleep apnea
Chronic thrombocytopenia
GERD
Cardiac catheterization 06/25/2023:�No obstructive coronary artery disease.� Mildly elevated right and left-sided filling pressures without evidence of pulmonary hypertension. Normal cardiac output with low systemic vascular resistance.
DAVIE 03/02/2023:�EF 55 to 60%, mild concentric LVH, no TEJ thrombus,Significant posterior mitral valve leaflet prolapse with partial flail and severe eccentric anteriorly directed mitral regurgitation.
Echo 01/25/2021:�EF 55 to 60%, mild concentric LVH, severe left atrial dilation with posterior leaflet prolapse and moderate to severe MR.
Echo 09/30/2023: EF 45-50%, global hypokinesis with regional variation, severe posterior mitral valve leaflet prolapse with partial flail, severe eccentric MR, systolic flow reversal in the pulmonary veins, mild TR, estimated PAP 40 mmHg,
Echo 10/15/2023: EF 50 to 55%, status post MV repair with mean gradient 3, no regurgitation. Compared to prior echo from September 2023 EF has improved and mitral valve has been repaired.
Plan:
Presented with fever found to be bacteremic with blood cultures positive for MSSA
Underwent transthoracic echocardiogram without evidence of infectious endocarditis
Cardiology is asked to arrange for transesophageal echo
Will plan to make patient n.p.o. at midnight on 10/29 and add to the schedule for DAVIE on 10/30
Discussed with patient and family at bedside
Data Reviewed
-
EKG: Tracing Personally Visualized and interpreted
Medical Tests (Nuc Med, Echo etc): Image Personally Visualized and interpreted
Labs: Labs Reviewed by me
Old Records: Reviewed
[2025-10-28] MEDS: TYLENOL 1000 MG PO ×3 (12:21→23:07)
--- NOTE | 2025-10-28 12:47 | PTCARENOTE ---
Pt with full body rigors. Expressing chills. Oral temp to 102.6F. HR observed to 150s. Ofirmev 1,000mg IV x1 now administered as patient did not take 0600 dose. PRN Dilaudid administered for pain. Pt now diaphoretic. HR to 80s. Oral temp 99.0F. Cool
cloths and linens provided.
[2025-10-28] MEDS: LOVENOX 40 MG SC (17:41)
[2025-10-28] MEDS: PROTONIX 40 MG PO (21:19)
[2025-10-29] VITALS (15 sets, daily range): BP systolic 51–140; BP diastolic 16–86
--- NOTE | 2025-10-29 01:14 | PTCARENOTE ---
Assumed care of Pt from vandana RN. Pt AAOx3 able to make needs known. Pt continues to have pain the left left side of ABD at times. PRN pain medication given with positive results. Assessment care and vitals as charted. Call banuelos within reach, Pt rings
appropriately. Bed in lowest position.
[2025-10-29] MEDS: ANCEF 10 IV ×3 (04:44→19:42)
[2025-10-29 05:25] LABS: Hematocrit 26.0 % (39.0-52.0); Hemoglobin 8.9 g/dL (13.0-18.0); Mean Corp Hgb Conc. 34.2 g/dL (33.0-37.0); Mean Corpuscular Volume 85.5 fL (80.0-94.0); Nucleated Red Blood Cells % 0 % (-); Platelet Count 100 10^3/uL (130-400); Red Cell Dist. Width 15.5 % (11.5-14.5)
[2025-10-29 05:31] LABS: ALT (SGPT) 23 U/L (0-50); AST (SGOT) 41 U/L (17-59); Albumin 2.6 g/dl (3.5-5.0); Alkaline Phosphatase 109 U/L (38-126); Blood Urea Nitrogen 11 mg/dl (9-20); Calcium 8.2 mg/dl (8.4-10.2); Carbon Dioxide 31 mmol/L (22-30); Chloride 105 mmol/L (98-107); Estimated Creatinine Clearance > 125 ml/min; Glucose 94 mg/dl (70-99); Potassium 3.4 mmol/L (3.5-5.1); Sodium 138 mmol/L (135-145); Total Protein 5.3 g/dl (6.3-8.2); eGFR > 60.00
[2025-10-29] MEDS: DILAUDID 1 MG IV ×2 (06:21→20:19)
[2025-10-29] MEDS: ASPIR LOW (ENTERIC COATED) 81 MG PO (07:30)
[2025-10-29] MEDS: LOPRESSOR 12.5 MG PO ×2 (07:30→19:41)
[2025-10-29] MEDS: LEXAPRO 10 MG PO (07:30)
[2025-10-29] MEDS: KCL 40 MEQ PO (08:22)
[2025-10-29] MEDS: MOTRIN 600 MG PO (08:22)
[2025-10-29] MEDS: DICLOFENAC 1% TOPICAL GEL 100 GRAM TOPICAL ×3 (08:23→23:15)
[2025-10-29] MEDS: TYLENOL PO (08:37)
--- NOTE | 2025-10-29 09:26 | W.PN.ID1 ---
Addendum entered and electronically signed by Diamond Cm MD 10/29/25 10:08:
did have steroid injection into the digit about 1.5 years ago for arthritis
Original Note:
Date of Service
Date of Service: October 29, 2025
Today's Communication
- eventual PICC when blood cultures persistently clear x72 hr
- c/w cefazolin
- anticipate 6 weeks of IV antibiotics
Assessment / Plan
S aureus Bacteremia
Fevers - resolved
GHULAM - resolved
MV repair
Suspected septic joint of the right 5th digit
Possible thoracic OM/discitis
Possible endocarditis
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
H/o spontaneous septic knee joint due to MSSA treated at [facility]
No hardwear in the body
- S aureus bacteremia 10/25, 10/26
- 10/28 blood cultures no growth
- MRI right hand - septic joint of the 5th PIP joint with assc osteomyelitis middle and proximal phalanx
- consult orthopedics
- thoracic spine MRI with and without contrast no lesions
- TTE - MVR no vegetations; DAVIE thursday
- CT abd - possible obstruction, most likely bilateral atelectasis
- bladder scan 1 cc post void
- eventual PICC when blood cultures persistently clear x72 hr
- c/w cefazolin
- anticipate 6 weeks of IV antibiotics
Chief Complaint
-: Bacteremia (S aureus)
Subjective / Review of Systems
febrile yesterday AM then clearing
bp stable
no further rigors since yesterday am
much improved ROM of the right 5th digit, improved strength
no cough or sputum production
BS post void was 1 cc not retaining
Vital Signs / Physical Exam
Vital Signs
Vital Signs
Temp Pulse Resp BP Pulse Ox
98.0 F 71 13 129/79 97
10/29/25 07:44 10/29/25 06:00 10/29/25 06:00 10/29/25 06:00 10/29/25 06:00
Physical Exam
Constitutional: No Acute Distress
Head: Other (no tenderness with firm palpation over the cervical spine)
Cardiovascular: Regular Rate and S1/S2; Negative Murmur or Rub
Pulmonary: Clear and Symmetric; Negative Wheezes or Rales
Gastrointestinal: Soft, Non Tender, Non Distended and Normal Bowel Sounds
Extremities: Other (right 5th digit with nearly full ROM improved strength, no erythema)
Skin: Warm and Dry; Negative Rash or Jaundice
Neurological: Awake
Objective Data
Lab Data
Lab Results
10/29/25 05:02
10/29/25 05:02
ESR 39 mm/hour (0-20) H 10/25/25 08:37
Estimated Creat Clear > 125 ml/min 10/29/25 05:02
Lactic Acid Cancelled 10/26/25 04:17
Total Bilirubin 0.5 mg/dl (0.2-1.3) 10/29/25 05:02
AST 41 U/L (17-59) 10/29/25 05:02
ALT 23 U/L (0-50) 10/29/25 05:02
Alkaline Phosphatase 109 U/L (38-126) 10/29/25 05:02
C-Reactive Protein > 270.00 mg/L (0.0-10.00) H 10/25/25 08:37
Most recent labs reviewed.
Micro Results:
10/26/25 10:10 Blood Culture - Preliminary
Blood/Venous Positive culture in progress
Gram Stain - Preliminary
10/28/25 05:07 Blood Culture - Preliminary
Blood/Venous No Growth in 24 hours- Final report to follow
10/28/25 05:07 Blood Culture - Preliminary
Blood/Venous No Growth in 24 hours- Final report to follow
10/26/25 09:25 Blood Culture - Preliminary
Blood/Venous No Growth in 48 hours- Final report to follow
10/25/25 08:43 Blood Culture - Final
Blood/Venous S aureus-Methicillin Sensitive
Gram Stain - Final
10/25/25 08:37 Blood Culture - Final
Blood/Venous S aureus-Methicillin Sensitive
Gram Stain - Final
10/26/25 08:19 MRSA Screen - Final
Nose No Methicillin Resistant Staphylococcus aureus isolated.
10/25/25 13:36 Urine Culture - Final
Urine NO GROWTH
10/25/25 08:37 Influenza Types A & B (CAROLE) - Final
Nasal Swab Negative for Influenza A & B, NAAT
Negative results must be combined with clinical observations
and patient history.
Nucleic Acid Amplification test (NAAT)performed on the
[employer] platform.
--- NOTE | 2025-10-29 10:02 | W.PN.HOSP.TC ---
Today's Communication/Plan
-
MRI hand likely septic joint. Ortho hand consulted
Continue on ancef
DAVIE tomorrow. NPO at midnight
Assessment / Plan
Assessment / Plan
60yoM PMH afib secondary to valvular dx s/p MV replacement, nephrolithiasis, sepsis secondary to L knee infxn in May presenting with acute onset of diarrhea, body aches, chills, fever since Thursday afternoon 4 days ago.
10/25 Afebrile. Continues to be borderline hypotensive after 3L resuscitation. Whole body aches, RUQ tenderness. Nausea and vomiting. GB distention on CT. Head CT positive for subgaleal hematoma. WBC 4.8, 10% bands, BUN 37 Cr 2.0. Lactate 3.7 repeat
1.3. Thrombocytopenia, hx of low plts with infxn per outpt records. LFTs WNL. Lipase 67. Sepsis with GHULAM viral gastroenteritis vs biliary infection given distention on CT and RUQ tenderness. No Lymphadenopathy. CRP>270 ESR 39. UA pending. CXR not
indicative of acue cardiopulmonary process.
10/26 AFVSS. Overnight tachycardic and tachypneic w/ tmax 100.4, improved this morning vitals WNL. BC +gram positive cocci in clusters; hx MSSA. Continue on zosyn added vanc. ID consult. Echo for MV replacement. Repeat head CT with no acute
findings, dissipation of subgaleal hematoma. UC pending. MRSA screen pending. Ab US demonstrated distended GB but no stone findings; RUQ tenderness improved, continue watching. New R 5th finger pain without erythema; monitor for improvement,
encourage ice. Hgb dropped 12.1 to 9.7, no current source of bleeding vs dilutional. Ask nursing to monitor for hematochezia.
10/27 AFVSS. New LUQ pain in addition to back and finger pain. awaiting sensitivities, continues on abx. MRI hand and spine today. Cr improved 0.7, GHULAM resolved. CXR. Intermittent hypoxia with sleep; oxygen for sleeping, recommend outpt sleep study.
New sore throat; encouraged PO intake due to dry air in hospital. Continue monitoring. Standing tylenol.
10/28 AFVSS until pt experienced episode of rigors with tachycardia, tachypnea, fever 102.9. Episode of blurry vision with defecation. TTE demonstrated no signs fo endocarditis. LUQ pain concern for abscess, repeat CT abd/pelvis with contrast. R 5th
finger without erythema or worsened pain. Still high suspicion for endocarditis given rigors and variable pain throughout body. CMP WNL. Seonc set of NGTD, repeated today. Hg continues to downtrend without source bleed vs dilutional given
incremental and high RDW. Thoracic MRI demonstrated no acute abnormality. DAVIE planned for thursday
10/29 AFVSS. No rigors since episode yesterday. Hgb stabilized 8.9, plts increased 100, WBC decreased 3.6. UE MRI demonstrated septic joint. Ct abd: hepatosplenomegaly stable, likely bilateral atelectasis. No clinical signs of pneumonia, encourage
IS. On low level oxygen 2L NC, initially started with sleep with evidence of BENITA but continues to be on during day now. DAVIE tomorrow. Ortho consult for possible hand washout.
PLAN:
#sepsis
#nausea, vomiting, diarrhea
#lactic acidosis
- fluid resuscitation
- Supportive measures, Tylenol, zofran PRN
- Continue Zosyn pending abd US. Possible viral gastroenteritis
- UA pending
- CXR not indicative of acute cardiopulmonary process
- Gram+ cocci in lcusters on BCx2. MSSA, vanc stopped, continue on ancef per ID
- Plan for DAVIE
- 10/26 grew at 72hrs
- MRI of hand demonstrates likely septic joint. Ortho hand consult for possible washout
- Leukopenia continues
#RUQ tenderness
#splenomegaly
- GB distended and splenomegaly on CT, ordered Abd US
- LFTs WNL
- Lipase 67
- Ab US distended GB without stones. Continue to monitor w improved symptoms.
- New LUQ cramps. Monitor. Made tylenol standing
- Repeat CT abd with IV contrast to look for abscess/source. No suspicious findings
#prerenal GHULAM
- fluid resuscitation
- Trend CMP
- Improved. Continue monitoring
- UC NGTD
#thrombocytopenia
- hx outpt, trend plts
- no active bleeding so plan to monitor
- Stable
#chronic back pain
- PRN tylenol. Hold toradol given GHULAM
- Diclofenac gel
- 1 dose morphine
- Stable this morning
- 1 dose ofrimev given for general aches.
- Continue monitoring
- MRI spine no abnormality
#R 5th finger PIP pain
- continue to monitor
- hand MRI likely septic joint
Code: Full
DVT prophylaxis: lovenox
Diet: Full
Anticipated Discharge: > 48 hours
Subjective/Interval History
-
Date of Service: October 29, 2025
Pt reports feeling well today. He describes the LUQ pain as constant rather than intermittent now of a dull ache, but controlled on current pain regimen. He reports improvement of 5th finger pain, able to bend it now with only mild pain. No rigors
overnight.
Objective Data
-
Labs:
Laboratory Results
10/29/25
05:02
WBC 3.6 L
Hgb 8.9 L
Hct 26.0 L
Plt Count 100 L
Sodium 138
Potassium 3.4 L
Chloride 105
Carbon Dioxide 31 H
BUN 11
Creatinine 0.7
Glucose 94
Calcium 8.2 L
Total Bilirubin 0.5
AST 41
ALT 23
Alkaline Phosphatase 109
Vital Signs:
Vital Signs
Temp Pulse Resp BP Pulse Ox
98.0 F 71 15 118/81 93
10/29/25 07:44 10/29/25 09:42 10/29/25 09:42 10/29/25 09:42 10/29/25 09:42
I&O
10/28/25 10/29/25 10/30/25
06:59 06:59 06:59
Intake Total 720 / 720 720 / 720
Output Total 700 / 700 500 / 500
Balance -700 / -700 220 / 220 720 / 720
Review of Systems
-
History Source: Patient
All other systems: Reviewed and negative
Physical Exam
-
General: Well Developed, Well Nourished, No Apparent Distress and Comfortable
HEENT: Normocephalic, Atraumatic and Moist Mucous Membranes
Respiratory: Clear to Auscultation and Non Labored Respirations
Cardiac: Regular Rhythm and S1/S2
GI: Soft, Nondistended and Tender (LUQ)
Musculoskeletal: No Edema and Other (R 5th digit still mildly tender)
Skin: Warm and Dry
Neuro: AO x 3, Nonfocal/Grossly Intact and No Sensory Deficits
Psych: Calm
[2025-10-29] MEDS: TYLENOL 1000 MG PO ×3 (11:00→23:15)
[2025-10-29] MEDS: DICLOFENAC 1% TOPICAL GEL TOPICAL (14:22)
--- NOTE | 2025-10-29 14:55 | PTCARENOTE ---
Pt received in bed @ 7000. Afebrile. Unable to receive 0600 dose of scheduled Tylenol due to > 4,000mg in 24 hours. Pt and at bedside concerned about return of fever and rigors. New order for Ibuprofen 600mg PO X1 now adminstered. Scheduled
Tylenol 1,000mg Q6H resumed @ 12:00. No fevers or rigors observed.
[2025-10-29] MEDS: ZOFRAN 4 MG PO (16:57)
[2025-10-29] MEDS: LOVENOX 40 MG SC (17:37)
--- NOTE | 2025-10-29 18:07 | PTCARENOTE ---
Pt with complaint of nausea. New order for EKG x1 now and PRN Zofran 4mg PO. QTc 495 on EKG. New order for Mg lab in AM.
[2025-10-29] MEDS: PROTONIX 40 MG PO (19:55)
--- NOTE | 2025-10-29 21:51 | W.PN.UPDATE ---
Update Note
Progress Note Update
Patient seen and evaluated at bedside. Imaging reviewed. Discussion had with patient and family. Surgical consult requested by ID for source control.
60 yo M staph aureus bacteremia, imaging concerning for right small finger PIP septic joint.
Tentatively plan for I and D right small finger tomorrow
NWB RUE
NPO at midnight
Please hold anti coagulation
Pain control
Medical management per primary team
Plan to OR tomorrow for I and D right small finger pending OR availability and medical clearance
[2025-10-30] VITALS (14 sets, daily range): BP systolic 120–146; BP diastolic 77–96
--- NOTE | 2025-10-30 02:08 | PTCARENOTE ---
Received patient in bed upon change of shift. AAOX3. Assist x 1 to BR. Steady with gait. No signs of distress. Able to make needs known. Patient NPO after midnight for DAVIE in am. Call banuelos within reach.
[2025-10-30] MEDS: ANCEF 10 IV ×2 (04:37→11:42)
[2025-10-30] MEDS: DILAUDID 0.5 MG IV (05:22)
[2025-10-30] MEDS: TYLENOL 1000 MG PO ×3 (05:22→23:39)
[2025-10-30 05:28] LABS: ALT (SGPT) 35 U/L (0-50); AST (SGOT) 65 U/L (17-59); Albumin 3.0 g/dl (3.5-5.0); Alkaline Phosphatase 119 U/L (38-126); Blood Urea Nitrogen 9 mg/dl (9-20); Calcium 8.3 mg/dl (8.4-10.2); Carbon Dioxide 29 mmol/L (22-30); Chloride 103 mmol/L (98-107); Estimated Creatinine Clearance > 125 ml/min; Glucose 91 mg/dl (70-99); Magnesium 1.6 mg/dl (1.6-2.3); Potassium 3.5 mmol/L (3.5-5.1); Sodium 138 mmol/L (135-145); Total Protein 5.9 g/dl (6.3-8.2); eGFR > 60.00
[2025-10-30 05:44] LABS: Hematocrit 28.2 % (39.0-52.0); Hemoglobin 9.7 g/dL (13.0-18.0); Mean Corp Hgb Conc. 34.4 g/dL (33.0-37.0); Mean Corpuscular Volume 85.7 fL (80.0-94.0); Nucleated Red Blood Cells % 0 % (-); Platelet Count 127 10^3/uL (130-400); Red Cell Dist. Width 15.3 % (11.5-14.5)
--- NOTE | 2025-10-30 07:29 | W.PN.HOSP.TC ---
Addendum entered and electronically signed by Boy García MD 10/31/25 15:13:
I personally reviewed and evaluated this patient with the resident. I agree with above unless if otherwise stated below.
I personally reviewed labs and imaging senior health consultant notes case management note
MSSA bacteremia
Infective endocarditis with small vegetation
Septic joint�right small finger PIP
GHULAM
Ancef 6 weeks of IV antibiotics from last negative blood cultures
Will require PICC line prior to discharge
Plan for DAVIE
Plan to go to the OR for right small finger PIP irrigation debridement arthrotomy
Original Note:
Today's Communication/Plan
-
Ortho debridement of 5th digit today
DAVIE tomorrow. NPO at midnight
Tigan for nausea. Repeat EKG
Assessment / Plan
Assessment / Plan
60yoM PMH afib secondary to valvular dx s/p MV replacement, nephrolithiasis, sepsis secondary to L knee infxn in May presenting with acute onset of diarrhea, body aches, chills, fever since Thursday afternoon 4 days ago.
10/25 Afebrile. Continues to be borderline hypotensive after 3L resuscitation. Whole body aches, RUQ tenderness. Nausea and vomiting. GB distention on CT. Head CT positive for subgaleal hematoma. WBC 4.8, 10% bands, BUN 37 Cr 2.0. Lactate 3.7 repeat
1.3. Thrombocytopenia, hx of low plts with infxn per outpt records. LFTs WNL. Lipase 67. Sepsis with GHULAM viral gastroenteritis vs biliary infection given distention on CT and RUQ tenderness. No Lymphadenopathy. CRP>270 ESR 39. UA pending. CXR not
indicative of acue cardiopulmonary process.
10/26 AFVSS. Overnight tachycardic and tachypneic w/ tmax 100.4, improved this morning vitals WNL. BC +gram positive cocci in clusters; hx MSSA. Continue on zosyn added vanc. ID consult. Echo for MV replacement. Repeat head CT with no acute
findings, dissipation of subgaleal hematoma. UC pending. MRSA screen pending. Ab US demonstrated distended GB but no stone findings; RUQ tenderness improved, continue watching. New R 5th finger pain without erythema; monitor for improvement,
encourage ice. Hgb dropped 12.1 to 9.7, no current source of bleeding vs dilutional. Ask nursing to monitor for hematochezia.
10/27 AFVSS. New LUQ pain in addition to back and finger pain. awaiting sensitivities, continues on abx. MRI hand and spine today. Cr improved 0.7, GHULAM resolved. CXR. Intermittent hypoxia with sleep; oxygen for sleeping, recommend outpt sleep study.
New sore throat; encouraged PO intake due to dry air in hospital. Continue monitoring. Standing tylenol.
10/28 AFVSS until pt experienced episode of rigors with tachycardia, tachypnea, fever 102.9. Episode of blurry vision with defecation. TTE demonstrated no signs fo endocarditis. LUQ pain concern for abscess, repeat CT abd/pelvis with contrast. R 5th
finger without erythema or worsened pain. Still high suspicion for endocarditis given rigors and variable pain throughout body. CMP WNL. Seonc set of BC NGTD, repeated today. Hg continues to downtrend without source bleed vs dilutional given
incremental and high RDW. Thoracic MRI demonstrated no acute abnormality. DAVIE planned for thursday
10/29 AFVSS. No rigors since episode yesterday. Hgb stabilized 8.9, plts increased 100, WBC decreased 3.6. UE MRI demonstrated septic joint. Ct abd: hepatosplenomegaly stable, likely bilateral atelectasis. No clinical signs of pneumonia, encourage
IS. On low level oxygen 2L NC, initially started with sleep with evidence of BENITA but continues to be on during day now. DAVIE tomorrow. Ortho consult for possible hand washout.
10/30 AFVSS. Continues to be afebrile>48hrs, CBC improving. K and Mg repleted to 4 and 2 respectively. Plan for finger debridement with ortho today. DAVIE deferred until tomorrow. Tigan added for nausea for QTc 495, plan to repeat EKG. Continue abx
per ID.
PLAN:
#sepsis
#nausea, vomiting, diarrhea
#lactic acidosis
- fluid resuscitation
- Supportive measures, Tylenol, zofran PRN
- Continue Zosyn pending abd US. Possible viral gastroenteritis
- UA pending
- CXR not indicative of acute cardiopulmonary process
- Gram+ cocci in clusters on BCx2. MSSA, vanc stopped, continue on ancef per ID
- Plan for DAVIE
- BC 10/26 grew at 72hrs
- MRI of hand demonstrates likely septic joint. Ortho debridement today
- Leukopenia improving
#RUQ tenderness
#splenomegaly
- GB distended and splenomegaly on CT, ordered Abd US
- LFTs WNL
- Lipase 67
- Ab US distended GB without stones. Continue to monitor w improved symptoms.
- New LUQ cramps. Monitor. Made tylenol standing. Added tigan for nausea
- Repeat CT abd with IV contrast to look for abscess/source. No suspicious findings
#prerenal GUHLAM
- fluid resuscitation
- Trend CMP
- Improved. Continue monitoring
- UC NGTD
#thrombocytopenia
- hx outpt, trend plts
- no active bleeding so plan to monitor
- Stable
#chronic back pain
- PRN tylenol. Hold toradol given GHULAM
- Diclofenac gel
- 1 dose morphine
- Stable this morning
- 1 dose ofrimev given for general aches.
- Continue monitoring
- MRI spine no abnormality
#R 5th finger PIP pain
- continue to monitor
- hand MRI septic joint
Code: Full
DVT prophylaxis: lovenox
Diet: Ful
Anticipated Discharge: > 48 hours
Subjective/Interval History
-
Date of Service: October 30, 2025
Pt reports continuing to feel general malaise but better each day. Continued LUQ cramps but R finger pain improving back to baseline.
Objective Data
-
Labs:
Laboratory Results
10/30/25
05:00
WBC 4.4 L
Hgb 9.7 L
Hct 28.2 L
Plt Count 127 L D
Sodium 138
Potassium 3.5
Chloride 103
Carbon Dioxide 29
BUN 9
Creatinine 0.7
Glucose 91
Calcium 8.3 L
Total Bilirubin 0.4
AST 65 H
ALT 35
Alkaline Phosphatase 119
Vital Signs:
Vital Signs
Temp Pulse Resp BP Pulse Ox
97.8 F 77 19 120/77 91
10/30/25 03:05 10/30/25 02:00 10/30/25 02:00 10/30/25 02:00 10/30/25 02:00
I&O
10/29/25 10/30/25 10/31/25
06:59 06:59 06:59
Intake Total 720 / 720 1200 / 1200
Output Total 500 / 500
Balance 220 / 220 1200 / 1200
Physical Exam
-
General: Well Developed, Well Nourished and Other (uncomfortable in bed)
HEENT: Normocephalic, Atraumatic (hematoma healing) and Moist Mucous Membranes
Respiratory: Clear to Auscultation and Non Labored Respirations
Cardiac: Regular Rhythm and S1/S2
GI: Soft, Nondistended and Tender (RUQ and LUQ tender to deep palpation)
Musculoskeletal: No Edema and Other (R 5th digit improving, mild tender to touch)
Skin: Warm, Dry and Other (chronic facial hemaingioma stable, no rash on abdomen)
Neuro: AO x 3, No Motor Deficits, Nonfocal/Grossly Intact and No Sensory Deficits
Psych: Calm
[2025-10-30] MEDS: ASPIR LOW (ENTERIC COATED) PO (08:32)
[2025-10-30] MEDS: LOPRESSOR 12.5 MG PO ×2 (09:22→20:14)
[2025-10-30] MEDS: KCL 40 MEQ PO (09:22)
--- NOTE | 2025-10-30 09:22 | W.PN.CARDCBS ---
Today's Communication / Plan
-
Plan for DAVIE 10/31/2025. N.p.o. after midnight.
Impression / Plan
-
PCP: Dr. Tolbert
Certified Retinal Angiographer: Dr. Bowers
Impression:
Presented with chest pain
Elevated troponin, peaked 0.072
Leukocytosis and fever
Severe MR s/p mitral valve repair (34mm SimuPlus band and 3 pairs of CV4 neochordoplasty to P2/P3, cleft closure) 10/02/2023
Paroxysmal atrial fibrillation
s/p CV 03/12/2017, 01/2023, 07/30/2023
s/p MAZE and TEJ exclusion 10/02/2023hronic anticoagulation on Eliquis
Nonischemic CM, EF 45-50% by echo 09/2023
Hypertension
Nephrolithiasis with prior urethral stenting 2016
Obstructive sleep apnea
Chronic thrombocytopenia
GERD
Cardiac catheterization 06/25/2023:�No obstructive coronary artery disease.� Mildly elevated right and left-sided filling pressures without evidence of pulmonary hypertension. Normal cardiac output with low systemic vascular resistance.
DAVIE 03/02/2023:�EF 55 to 60%, mild concentric LVH, no TEJ thrombus,Significant posterior mitral valve leaflet prolapse with partial flail and severe eccentric anteriorly directed mitral regurgitation.
Echo 01/25/2021:�EF 55 to 60%, mild concentric LVH, severe left atrial dilation with posterior leaflet prolapse and moderate to severe MR.
Echo 09/30/2023: EF 45-50%, global hypokinesis with regional variation, severe posterior mitral valve leaflet prolapse with partial flail, severe eccentric MR, systolic flow reversal in the pulmonary veins, mild TR, estimated PAP 40 mmHg,
Echo 10/15/2023: EF 50 to 55%, status post MV repair with mean gradient 3, no regurgitation. Compared to prior echo from September 2023 EF has improved and mitral valve has been repaired.
Plan:
Presented with fever found to be bacteremic with blood cultures positive for MSSA
Blood cultures with MSSA on 10/25. Blood culture 10/26 + in process. Blood cultures 10/28 NGTD, and pending 10/30.
Hemodynamically stable with last temperature 102.6 on 10/28
Transthoracic echocardiogram 10/27 without evidence of infectious endocarditis
Patient is scheduled for right finger I&D with orthopedics today
Will reschedule transesophageal echocardiogram to Wednesday 10/31. N.p.o. after midnight.
Discussed with patient and family at bedside
Progress Note - Certified Retinal Angiographer
Subjective
Date of Service: October 30, 2025
Patient was seen and examined. Overall feels fatigued with generalized malaise. No specific cardiac complaints.
Objective
Labs:
10/30/25 05:00
10/30/25 05:00
Labs
Hgb 9.7 g/dL (13.0-18.0) L 10/30/25 05:00
Hct 28.2 % (39.0-52.0) L 10/30/25 05:00
Plt Count 127 10^3/uL (130-400) L D 10/30/25 05:00
Sodium 138 mmol/L (135-145) 10/30/25 05:00
Potassium 3.5 mmol/L (3.5-5.1) 10/30/25 05:00
BUN 9 mg/dl (9-20) 10/30/25 05:00
Creatinine 0.7 mg/dL (0.7-1.3) 10/30/25 05:00
Glucose 91 mg/dl (70-99) 10/30/25 05:00
Vital Signs and I&O:
Vital Signs
Temp Pulse Resp BP Pulse Ox
99.0 F 77 19 120/77 91
10/30/25 08:04 10/30/25 02:00 10/30/25 02:00 10/30/25 02:00 10/30/25 02:00
Vital Signs
Temp Pulse Resp BP Pulse Ox
99.0 F 77 19 120/77 91
10/30/25 08:04 10/30/25 02:00 10/30/25 02:00 10/30/25 02:00 10/30/25 02:00
Intake & Output
10/28/25 10/29/25 10/30/25 10/31/25
06:59 06:59 06:59 06:59
Intake Total 720 / 720 1200 / 1200
Output Total 700 / 700 500 / 500
Balance -700 / -700 220 / 220 1200 / 1200
Physical Exam
Physical Exam
GEN: AAO x3
HEENT: mmm
LUNGS: Bronchovesicular breath sounds, clear bilaterally
CV: Reg + s1s2 no murmur
ABD: soft, BS+
EXT: No edema
NEURO: Gross non-focal
[2025-10-30] MEDS: LEXAPRO 10 MG PO (09:23)
[2025-10-30] MEDS: DICLOFENAC 1% TOPICAL GEL 100 GRAM TOPICAL (09:23)
[2025-10-30] MEDS: MAGNESIUM SULFATE 50 IV (09:24)
--- NOTE | 2025-10-30 09:53 | W.PN.ID1 ---
Date of Service
Date of Service: October 30, 2025
Today's Communication
- appreciate cardiology and orthopedics
- eventual PICC when blood cultures persistently clear x72 hr
- c/w cefazolin
- anticipate 6 weeks of IV antibiotics
Assessment / Plan
S aureus Bacteremia
Fevers - resolved
GHULAM - resolved
MV repair
Suspected septic joint of the right 5th digit
Possible thoracic OM/discitis
Possible endocarditis
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
H/o spontaneous septic knee joint due to MSSA treated at [facility]
No hardwear in the body
- S aureus bacteremia 10/25, 10/26
- 10/28 blood cultures no growth
- MRI right hand - septic joint of the 5th PIP joint with assc osteomyelitis middle and proximal phalanx
- appreciate orthopedics
- thoracic spine MRI with and without contrast no lesions
- TTE - MVR no vegetations; DAVIE pending
- eventual PICC when blood cultures persistently clear x72 hr
- c/w cefazolin
- anticipate 6 weeks of IV antibiotics
Chief Complaint
-: Bacteremia (S aureus)
Subjective / Review of Systems
no further fevers
bp stbale
for DAVIE tomorrow AM
nausea overnight
I&D today
Vital Signs / Physical Exam
Vital Signs
Vital Signs
Temp Pulse Resp BP Pulse Ox
99.0 F 80 19 141/96 91
10/30/25 08:04 10/30/25 09:22 10/30/25 02:00 10/30/25 09:22 10/30/25 02:00
Physical Exam
Constitutional: No Acute Distress
Cardiovascular: Regular Rate and S1/S2; Negative Murmur or Rub
Pulmonary: Clear and Symmetric; Negative Wheezes or Rales
Gastrointestinal: Soft, Non Tender, Non Distended and Normal Bowel Sounds
Musculoskeletal: Other (further improved strength of the R pinkey, no erythema)
Skin: Warm and Dry; Negative Rash or Jaundice
Objective Data
Lab Data
Lab Results
10/30/25 05:00
10/30/25 05:00
ESR 39 mm/hour (0-20) H 10/25/25 08:37
Estimated Creat Clear > 125 ml/min 10/30/25 05:00
Lactic Acid Cancelled 10/26/25 04:17
Total Bilirubin 0.4 mg/dl (0.2-1.3) 10/30/25 05:00
AST 65 U/L (17-59) H 10/30/25 05:00
ALT 35 U/L (0-50) 10/30/25 05:00
Alkaline Phosphatase 119 U/L (38-126) 10/30/25 05:00
C-Reactive Protein > 270.00 mg/L (0.0-10.00) H 10/25/25 08:37
Most recent labs reviewed.
Micro Results:
10/26/25 09:25 Blood Culture - Preliminary
Blood/Venous No Growth in 4 days- Final report to follow
10/28/25 05:07 Blood Culture - Preliminary
Blood/Venous No Growth in 48 hours- Final report to follow
10/28/25 05:07 Blood Culture - Preliminary
Blood/Venous No Growth in 48 hours- Final report to follow
10/30/25 06:00 Blood Culture - Pending
Blood/Venous
10/30/25 05:00 Blood Culture - Pending
Blood/Venous
10/26/25 10:10 Blood Culture - Preliminary
Blood/Venous Positive culture in progress
Gram Stain - Preliminary
10/25/25 08:43 Blood Culture - Final
Blood/Venous S aureus-Methicillin Sensitive
Gram Stain - Final
10/25/25 08:37 Blood Culture - Final
Blood/Venous S aureus-Methicillin Sensitive
Gram Stain - Final
10/26/25 08:19 MRSA Screen - Final
Nose No Methicillin Resistant Staphylococcus aureus isolated.
10/25/25 13:36 Urine Culture - Final
Urine NO GROWTH
10/25/25 08:37 Influenza Types A & B (CAROLE) - Final
Nasal Swab Negative for Influenza A & B, NAAT
Negative results must be combined with clinical observations
and patient history.
Nucleic Acid Amplification test (NAAT)performed on the
[employer] platform.
[2025-10-30] MEDS: DICLOFENAC 1% TOPICAL GEL TOPICAL ×3 (12:02→22:21)
[2025-10-30] MEDS: LOVENOX SC (12:32)
--- NOTE | 2025-10-30 14:14 | PTCARENOTE ---
Addendum entered by Salas Weiner RN 10/30/25 18:46:
Patient returned from OR by bed. Right finger dressing CDI, neurovascular checks normal. VSS. Patient drowsy, reports no pain. Family at bedside. Will closely monitor.
Original Note:
Patient AAox3, family at bedside. Assessment notable for LUQ tenderness, MD aware. Encouraging IS. RA, VSS. Awaiting OR today for finger washout. Aspirin held per ortho MD instruction. Lovenox being held tonight for DAVIE tomorrow. Will continue to
closely monitor.
[2025-10-30] MEDS: TIGAN 200 MG IM (14:56)
--- NOTE | 2025-10-30 15:23 | CM ---
F/U: Patient going to the O.R. today and getting a DAVIE tomorrow. CM to follow up with discharge needs. PLAN: TBD, SNF vs. Home.
--- NOTE | 2025-10-30 17:52 | OR.RPT ---
Operative Report
Operative Report
Date
10/21/2025
Anesthesia Type:
MAC with digital nerve block
Operative Indications:
Suspected right small finger PIP septic arthritis
Operative Findings :
Small egress of serous fluid, no obvious purulence
Complications:
None
Implants:
None
Procedure and Technique:
Irrigation and debridement, arthrotomy right small finger PIP septic arthritis
INDICATIONS FOR PROCEDURE:
Patient is a 60-year-old male who was admitted to the hospital ultimately found to be bacteremic. He underwent advanced imaging of his right hand and there was concern for right small finger PIP septic arthritis. Had a long and detailed discussion
with the patient as well as his regarding diagnosis and treatment options. I did discuss with the infectious disease team as well who was concerned regarding source control as there is no other obvious source of infection currently. We
discussed risks benefits and alternatives of surgery. Discussed the usual expected perioperative postoperative course. No guarantees were given. After discussion written informed consent was obtained
OPERATIVE PROCEDURE:
Patient was seen and identified in the preoperative holding area. Operative site was marked. All questions were addressed and answered. He was taken to the operating room where sedation was administered. Nonsterile tourniquet was applied to the
right upper extremity. Operative extremity was then prepped and draped in normal sterile fashion. Timeout was performed again identifying the correct operative extremity. Preoperative antibiotics were held. Tourniquet was inflated. Digital
block was performed with approximately 5 cc 1% lidocaine without epinephrine over the A1 kolby and another 2 cc over the dorsal cutaneous nerves. Direct dorsal approach was taken to the small finger PIP of the right hand. Sharp dissection was
carried through skin subcutaneous tissues. Labs to raise. Extensor mechanism was then incised longitudinally in line with the tendon. Capsulotomy was performed. There is a small egress of serous fluid but no purulence was identified. Cultures
were obtained .there was noted to be a small osteophyte as well. The joint was then copiously irrigated with normal saline solution approximately 1 L. Sharp excisional debridement was performed of the subcutaneous as well as synovial tissue with a
knife and rongeur. Satisfied with extent of surgery, tourniquet was deflated hemostasis was achieved with bipolar electrocautery. Wound was closed in an epi tendinous fashion utilizing 3-0 nylon suture interrupted fashion to loosely reapproximate
the skin and allow for some postoperative drainage. Sterile dressings were applied consisting of Xeroform, 4 x 4 gauze, Dominga Webril and Bradley bandage. Postoperative plans include nonweightbearing to the operative extremity. Recommend continue
antibiotics per infectious disease follow-up intraoperative cultures. Plan to see patient back in 10 to 14 days repeat clinical assessment removal of sutures
Disposition:
PACU stable condition
[2025-10-30] MEDS: TYLENOL PO (18:46)
[2025-10-30] MEDS: DILAUDID 1 MG IV (21:13)
--- NOTE | 2025-10-30 23:00 | PTCARENOTE ---
Received patient from [facility] RN at 1900, resting comfortably in bed. Patient returned from OR at change of shift s/p washout of R 5th finger. Assessment and vital signs documented in flow sheets. AAOx3, lungs clear on RA. SR on tele. Pain
medications administered as needed. R hand dressing c/d/i. Neuro checks q4. Fall precautions in place. Continuing with plan of care.
[2025-10-31] VITALS (13 sets, daily range): BP systolic 112–145; BP diastolic 64–100
[2025-10-31] MEDS: ANCEF 10 IV ×3 (02:25→17:47)
[2025-10-31] MEDS: TYLENOL 1000 MG PO ×4 (06:10→23:20)
[2025-10-31 06:39] LABS: Hematocrit 29.6 % (39.0-52.0); Hemoglobin 10.0 g/dL (13.0-18.0); Mean Corp Hgb Conc. 33.8 g/dL (33.0-37.0); Mean Corpuscular Volume 84.8 fL (80.0-94.0); Nucleated Red Blood Cells % 0 % (-); Platelet Count 153 10^3/uL (130-400); Red Cell Dist. Width 14.9 % (11.5-14.5)
[2025-10-31 07:03] LABS: ALT (SGPT) 34 U/L (0-50); AST (SGOT) 57 U/L (17-59); Albumin 3.0 g/dl (3.5-5.0); Alkaline Phosphatase 115 U/L (38-126); Blood Urea Nitrogen 12 mg/dl (9-20); Calcium 8.0 mg/dl (8.4-10.2); Carbon Dioxide 28 mmol/L (22-30); Chloride 103 mmol/L (98-107); Estimated Creatinine Clearance > 125 ml/min; Glucose 122 mg/dl (70-99); Potassium 4.5 mmol/L (3.5-5.1); Sodium 134 mmol/L (135-145); Total Protein 5.9 g/dl (6.3-8.2); eGFR > 60.00
--- NOTE | 2025-10-31 07:38 | W.PN.HOSP.TC ---
Addendum entered and electronically signed by Boy García MD 10/31/25 15:13:
I personally reviewed and evaluated this patient with the resident. I agree with above unless if otherwise stated below.
I personally reviewed labs and imaging networks software consultant notes case management note
MSSA bacteremia
Infective endocarditis with small vegetation
Septic joint�right small finger PIP
GHULAM
Ancef 6 weeks of IV antibiotics from last negative blood cultures
Will require PICC line prior to discharge
Plan for DAVIE
S/p irrigation debridement of left small finger PIP arthrotomy, postop day 1
Original Note:
Today's Communication/Plan
-
Echo
PICC placement today
Dispo planning
Assessment / Plan
Assessment / Plan
60yoM PMH afib secondary to valvular dx s/p MV replacement, nephrolithiasis, sepsis secondary to L knee infxn in May presenting with acute onset of diarrhea, body aches, chills, fever since Thursday afternoon 4 days ago.
10/25 Afebrile. Continues to be borderline hypotensive after 3L resuscitation. Whole body aches, RUQ tenderness. Nausea and vomiting. GB distention on CT. Head CT positive for subgaleal hematoma. WBC 4.8, 10% bands, BUN 37 Cr 2.0. Lactate 3.7 repeat
1.3. Thrombocytopenia, hx of low plts with infxn per outpt records. LFTs WNL. Lipase 67. Sepsis with GHULAM viral gastroenteritis vs biliary infection given distention on CT and RUQ tenderness. No Lymphadenopathy. CRP>270 ESR 39. UA pending. CXR not
indicative of acue cardiopulmonary process.
10/26 AFVSS. Overnight tachycardic and tachypneic w/ tmax 100.4, improved this morning vitals WNL. BC +gram positive cocci in clusters; hx MSSA. Continue on zosyn added vanc. ID consult. Echo for MV replacement. Repeat head CT with no acute
findings, dissipation of subgaleal hematoma. UC pending. MRSA screen pending. Ab US demonstrated distended GB but no stone findings; RUQ tenderness improved, continue watching. New R 5th finger pain without erythema; monitor for improvement,
encourage ice. Hgb dropped 12.1 to 9.7, no current source of bleeding vs dilutional. Ask nursing to monitor for hematochezia.
10/27 AFVSS. New LUQ pain in addition to back and finger pain. awaiting sensitivities, continues on abx. MRI hand and spine today. Cr improved 0.7, GHULAM resolved. CXR. Intermittent hypoxia with sleep; oxygen for sleeping, recommend outpt sleep study.
New sore throat; encouraged PO intake due to dry air in hospital. Continue monitoring. Standing tylenol.
10/28 AFVSS until pt experienced episode of rigors with tachycardia, tachypnea, fever 102.9. Episode of blurry vision with defecation. TTE demonstrated no signs fo endocarditis. LUQ pain concern for abscess, repeat CT abd/pelvis with contrast. R 5th
finger without erythema or worsened pain. Still high suspicion for endocarditis given rigors and variable pain throughout body. CMP WNL. Seonc set of BC NGTD, repeated today. Hg continues to downtrend without source bleed vs dilutional given
incremental and high RDW. Thoracic MRI demonstrated no acute abnormality. DAVIE planned for thursday
10/29 AFVSS. No rigors since episode yesterday. Hgb stabilized 8.9, plts increased 100, WBC decreased 3.6. UE MRI demonstrated septic joint. Ct abd: hepatosplenomegaly stable, likely bilateral atelectasis. No clinical signs of pneumonia, encourage
IS. On low level oxygen 2L NC, initially started with sleep with evidence of BENITA but continues to be on during day now. DAVIE tomorrow. Ortho consult for possible hand washout.
10/30 AFVSS. Continues to be afebrile>48hrs, CBC improving. K and Mg repleted to 4 and 2 respectively. Plan for finger debridement with ortho today. DAVIE deferred until tomorrow. Tigan added for nausea for QTc 495, plan to repeat EKG. Continue abx
per ID.
10/21 AFVSS. BC NGTD since 10/26. Debridement yesterday, wound cultures pending. DAVIE today. Repeat ECG today. PICC placement, dispo pending ID recs.
PLAN:
#sepsis
#nausea, vomiting, diarrhea
#lactic acidosis
- fluid resuscitation
- Supportive measures, Tylenol, zofran PRN
- Continue Zosyn pending abd US. Possible viral gastroenteritis
- UA pending
- CXR not indicative of acute cardiopulmonary process
- Gram+ cocci in clusters on BCx2. MSSA, vanc stopped, continue on ancef per ID
- Plan for DAVIE
- BC 10/26 grew at 72hrs
- MRI of hand demonstrates likely septic joint. Ortho debridement yesterday.
- Leukopenia improving
- PICC placement today
#RUQ tenderness
#splenomegaly
- GB distended and splenomegaly on CT, ordered Abd US
- LFTs WNL
- Lipase 67
- Ab US distended GB without stones. Continue to monitor w improved symptoms.
- New LUQ cramps. Monitor. Made tylenol standing. Added tigan for nausea. Improving each day.
- Repeat CT abd with IV contrast to look for abscess/source. No suspicious findings
#prerenal GHULAM
- fluid resuscitation
- Trend CMP
- Improved. Continue monitoring
- UC NGTD
#thrombocytopenia
- hx outpt, trend plts
- no active bleeding so plan to monitor
- Stable
#chronic back pain
- PRN tylenol. Hold toradol given GHULAM
- Diclofenac gel
- 1 dose morphine
- Stable this morning
- 1 dose ofrimev given for general aches.
- Continue monitoring
- MRI spine no abnormality
#R 5th finger PIP pain
- continue to monitor
- hand MRI septic joint
Code: Full
DVT prophylaxis: lovenox
Diet: Ful
Anticipated Discharge: Within 24 hours
Subjective/Interval History
-
Date of Service: October 31, 2025
Pt reports feeling better today from previously, still not at baseline.
Objective Data
-
Labs:
Laboratory Results
10/31/25
06:19
WBC 4.6 L
Hgb 10.0 L
Hct 29.6 L
Plt Count 153 D
Sodium 134 L
Potassium 4.5 D
Chloride 103
Carbon Dioxide 28
BUN 12
Creatinine 0.6 L
Glucose 122 H
Calcium 8.0 L
Total Bilirubin 0.4
AST 57
ALT 34
Alkaline Phosphatase 115
Vital Signs:
Vital Signs
Temp Pulse Resp BP Pulse Ox
98.1 F 76 22 140/86 98
10/31/25 03:04 10/30/25 22:00 10/30/25 22:00 10/30/25 22:00 10/30/25 19:45
I&O
10/30/25 10/31/25 11/01/25
06:59 06:59 06:59
Intake Total 1200 / 1200 50 / 50
Balance 1200 / 1200 50 / 50
Physical Exam
-
General: Well Developed, Well Nourished and Other (uncomfortable in bed)
HEENT: Normocephalic, Atraumatic (hematoma healing) and Moist Mucous Membranes
Respiratory: Clear to Auscultation and Non Labored Respirations
Cardiac: Regular Rhythm and S1/S2
GI: Soft, Nondistended and Tender (RUQ and LUQ tender to deep palpation, less than yesterday)
Musculoskeletal: No Edema and Other (R 5th digit wrapped in bandage)
Skin: Warm, Dry and Other (chronic facial hemaingioma stable, no rash on abdomen)
Neuro: AO x 3, No Motor Deficits, Nonfocal/Grossly Intact and No Sensory Deficits
Psych: Calm
[2025-10-31] MEDS: LEXAPRO 10 MG PO (07:54)
[2025-10-31] MEDS: LOPRESSOR 12.5 MG PO ×2 (07:55→21:10)
[2025-10-31] MEDS: ASPIR LOW (ENTERIC COATED) 81 MG PO (07:55)
[2025-10-31] MEDS: DICLOFENAC 1% TOPICAL GEL 100 GRAM TOPICAL ×4 (07:59→21:19)
--- NOTE | 2025-10-31 09:09 | W.PN.ID1 ---
Date of Service
Date of Service: October 31, 2025
Today's Communication
- TTE - MVR no vegetations; DAVIE pending
- PICC
- c/w cefazolin 6 weeks of IV antibiotics from clearance of blood cultures - script provided to correctional counselor/case manager
- follow up within about 6 weeks
Assessment / Plan
MSSA Bacteremia
Septic joint of the right 5th digit with osteomyelitis of the middle and proximal phalanx
Possible endocarditis
Fevers - resolved
GHULAM - resolved
MV repair
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
H/o spontaneous septic knee joint due to MSSA treated at [facility]
No hardwear in the body
- S aureus bacteremia 10/25, 10/26
- 10/28 blood cultures no growth
- MRI right hand - septic joint of the 5th PIP joint with assc osteomyelitis middle and proximal phalanx
- appreciate orthopedics
- thoracic spine MRI with and without contrast no lesions
- TTE - MVR no vegetations; DAVIE pending
- PICC
- c/w cefazolin 6 weeks of IV antibiotics from clearance of blood cultures - script provided to correctional counselor/case manager
- follow up within about 6 weeks
Chief Complaint
-: Bacteremia (S aureus)
Subjective / Review of Systems
afebrile
bp stable
s/p I&D - small amount of serous fluid obtained
Vital Signs / Physical Exam
Vital Signs
Vital Signs
Temp Pulse Resp BP Pulse Ox
98.0 F 68 16 139/86 96
10/31/25 07:42 10/31/25 08:00 10/31/25 08:00 10/31/25 07:56 10/31/25 08:00
Physical Exam
Constitutional: No Acute Distress
Cardiovascular: Regular Rate and S1/S2; Negative Murmur or Rub
Pulmonary: Clear and Symmetric; Negative Wheezes or Rales
Gastrointestinal: Soft, Non Tender, Non Distended and Normal Bowel Sounds
Extremities: Other (deferred dressing take down, clean, dry, intact)
Skin: Warm and Dry; Negative Rash or Jaundice
Neurological: Awake
Objective Data
Lab Data
Lab Results
10/31/25 06:19
10/31/25 06:19
ESR 39 mm/hour (0-20) H 10/25/25 08:37
Estimated Creat Clear > 125 ml/min 10/31/25 06:19
Lactic Acid Cancelled 10/26/25 04:17
Total Bilirubin 0.4 mg/dl (0.2-1.3) 10/31/25 06:19
AST 57 U/L (17-59) 10/31/25 06:19
ALT 34 U/L (0-50) 10/31/25 06:19
Alkaline Phosphatase 115 U/L (38-126) 10/31/25 06:19
C-Reactive Protein > 270.00 mg/L (0.0-10.00) H 10/25/25 08:37
Most recent labs reviewed.
Micro Results:
10/28/25 05:07 Blood Culture - Preliminary
Blood/Venous No Growth in 72 hours- Final report to follow
10/28/25 05:07 Blood Culture - Preliminary
Blood/Venous No Growth in 72 hours- Final report to follow
10/30/25 06:00 Blood Culture - Preliminary
Blood/Venous No Growth in 24 hours- Final report to follow
10/30/25 05:00 Blood Culture - Preliminary
Blood/Venous No Growth in 24 hours- Final report to follow
10/30/25 17:30 Wound Culture - Pending
Finger - Right Gram Stain - Pending
10/30/25 17:30 Anaerobic Culture - Pending
Finger - Right
10/26/25 10:10 Blood Culture - Preliminary
Blood/Venous S aureus-Methicillin Sensitive
Gram Stain - Preliminary
10/26/25 09:25 Blood Culture - Preliminary
Blood/Venous No Growth in 4 days- Final report to follow
10/25/25 08:43 Blood Culture - Final
Blood/Venous S aureus-Methicillin Sensitive
Gram Stain - Final
10/25/25 08:37 Blood Culture - Final
Blood/Venous S aureus-Methicillin Sensitive
Gram Stain - Final
10/26/25 08:19 MRSA Screen - Final
Nose No Methicillin Resistant Staphylococcus aureus isolated.
10/25/25 13:36 Urine Culture - Final
Urine NO GROWTH
10/25/25 08:37 Influenza Types A & B (CAROLE) - Final
Nasal Swab Negative for Influenza A & B, NAAT
Negative results must be combined with clinical observations
and patient history.
Nucleic Acid Amplification test (NAAT)performed on the
[employer] platform.
--- NOTE | 2025-10-31 10:38 | PTCARENOTE ---
Patient transported to cemetery laborer by cemetery laborer RN for DAVIE. VSS.
--- NOTE | 2025-10-31 11:53 | W.PN.CARDCBS ---
Today's Communication / Plan
-
DAVIE with likely small vegetation on annuloplasty band. No marked mitral regurgitation only mild MR.
Recommend continue cefazolin for 6 weeks and then repeat DAVIE to reevaluate mitral valve repair.
No new fevers
Impression / Plan
-
PCP: Dr. Tolbert
Sec Accountant: Dr. Bowers
Impression:
Presented with chest pain
Elevated troponin, peaked 0.072
Leukocytosis and fever
Severe MR s/p mitral valve repair (34mm SimuPlus band and 3 pairs of CV4 neochordoplasty to P2/P3, cleft closure) 10/02/2023
Paroxysmal atrial fibrillation
s/p CV 03/12/2017, 01/2023, 07/30/2023
s/p MAZE and TEJ exclusion 10/02/2023hronic anticoagulation on Eliquis
Nonischemic CM, EF 45-50% by echo 09/2023
Hypertension
Nephrolithiasis with prior urethral stenting 2016
Obstructive sleep apnea
Chronic thrombocytopenia
GERD
Cardiac catheterization 06/25/2023:�No obstructive coronary artery disease.� Mildly elevated right and left-sided filling pressures without evidence of pulmonary hypertension. Normal cardiac output with low systemic vascular resistance.
DAVIE 03/02/2023:�EF 55 to 60%, mild concentric LVH, no TEJ thrombus,Significant posterior mitral valve leaflet prolapse with partial flail and severe eccentric anteriorly directed mitral regurgitation.
Echo 01/25/2021:�EF 55 to 60%, mild concentric LVH, severe left atrial dilation with posterior leaflet prolapse and moderate to severe MR.
Echo 09/30/2023: EF 45-50%, global hypokinesis with regional variation, severe posterior mitral valve leaflet prolapse with partial flail, severe eccentric MR, systolic flow reversal in the pulmonary veins, mild TR, estimated PAP 40 mmHg,
Echo 10/15/2023: EF 50 to 55%, status post MV repair with mean gradient 3, no regurgitation. Compared to prior echo from September 2023 EF has improved and mitral valve has been repaired.
DAVIE 10/31/25, EF 55%, MV repair with small area of mobile thickening on Annuloplasty band with mild MR, Mean Gradient 2mmHg, likely small vegetation
Plan:
Presented with fever found to be bacteremic with blood cultures positive for MSSA
Blood cultures with MSSA on 10/25 and 10/26. Blood cultures 10/28 NGTD, and 10/30.
Hemodynamically stable with last temperature 102.6 on 10/28
Had I and D of Right finger 10/30
DAVIE today with a small mobile echodensity on the annuloplasty band consistent with likely endocarditis. There is only mild mitral regurgitation present.
Continue cefazolin for 6 weeks and would repeat DAVIE after treatment with antibiotics ,assuming remains clinically stable with no new fevers.
If patient has new symptoms would repeat DAVIE sooner. Case discussed with CT surgery and they will see patient today as well
Thrombocytopenia has resolved and platelet count now 153,000.
Progress Note - Sec Accountant
Subjective
Date of Service: October 31, 2025
No new fevers. No chills
Objective
Labs:
10/31/25 06:19
10/31/25 06:19
Labs
Hgb 10.0 g/dL (13.0-18.0) L 10/31/25 06:19
Hct 29.6 % (39.0-52.0) L 10/31/25 06:19
Plt Count 153 10^3/uL (130-400) D 10/31/25 06:19
Sodium 134 mmol/L (135-145) L 10/31/25 06:19
Potassium 4.5 mmol/L (3.5-5.1) D 10/31/25 06:19
BUN 12 mg/dl (9-20) 10/31/25 06:19
Creatinine 0.6 mg/dL (0.7-1.3) L 10/31/25 06:19
Glucose 122 mg/dl (70-99) H 10/31/25 06:19
Vital Signs and I&O:
Vital Signs
Temp Pulse Resp BP Pulse Ox
98.0 F 65 15 145/97 96
10/31/25 07:42 10/31/25 10:00 10/31/25 10:00 10/31/25 10:00 10/31/25 08:00
Vital Signs
Temp Pulse Resp BP Pulse Ox
98.0 F 65 15 145/97 96
10/31/25 07:42 10/31/25 10:00 10/31/25 10:00 10/31/25 10:00 10/31/25 08:00
Intake & Output
10/29/25 10/30/25 10/31/25 11/01/25
06:59 06:59 06:59 06:59
Intake Total 720 / 720 1200 / 1200 50 / 50
Output Total 500 / 500
Balance 220 / 220 1200 / 1200 50 / 50
Physical Exam
Physical Exam
GEN: No distress, awake, Ox3
HEENT: supple, anicteric, mmm
LUNGS: CTA, no wheezes/rales
CV: Reg, S1/S2, 1/6 syst LSB, no gallop
ABD: soft, BS+, NT/ND
EXT: R finger dressing intact
NEURO: Gross non-focal
SKIN: No rash
--- NOTE | 2025-10-31 12:16 | CONSULT.CT ---
Consultation
-
Date/Time Consultation Requested: 10/31 1145
Date/Time Consultation Performed: 10/31 1215
Requesting Provider: Rohith MADSEN
Performing Provider: Carole SOLORIO for Ellen HASKINS
Reason for Consultation: Endocarditis
Patient History
Physicians
Family Physician: Dr. Tolbert
Outpatient Data Warehousing Architect: Dr. Bowers
Inpatient Data Warehousing Architect: Dr. Bowers
History of Present Illness
60-year-old man past medical history of severe MR s/p mitral valve repair in [address] Hughes, NICM, HTN, presented 10/25 after several days of persistent fevers. He was found to have MSSA bacteremia and was started on broad-spectrum antibiotics.
Subsequent cultures from 10/26 showed no growth to date. Underwent imaging to assess for underlying source including CT abdomen/pelvis as well as MRI of the spine both of which were unrevealing. Cardiology preformed a DAVIE today showed a concern for
a echodensity on the mitral valve. CT surgery was consulted for follow up.
Past Medical History
Past Medical History: Other
Severe MR s/p mitral valve repair (34mm SimuPlus band and 3 pairs of CV4 neochordoplasty to P2/P3, cleft closure) 10/02/2023
Paroxysmal atrial fibrillation
s/p CV 03/12/2017, 01/2023, 07/30/2023
s/p MAZE and TEJ exclusion 10/02/2023 Chronic anticoagulation on EliquisNonischemic CM, EF 45-50% by echo 09/2023
Hypertension
Nephrolithiasis with prior urethral stenting 2016
Obstructive sleep apnea
Chronic thrombocytopenia
GERD
Past Surgical History
mitral valve repair (34mm SimuPlus band and 3 pairs of CV4 neochordoplasty to P2/P3, cleft closure) 10/02/[address] Hughes
Family History
Mother: N/A
Father: N/A
Family Medical History: CAD
Social History
Alcohol: None
Drug: None
Tobacco: Non-Smoker
Personal:
Living: With Spouse
Employment: Employed
Allergies
Allergy/AdvReac Type Severity Reaction Status Date / Time
adhesive tape Allergy Rash Verified 05/02/25 05:53
Home Medications
�Medication �Instructions �Recorded �Confirmed �Type
Voltaren 1 applic topical QIDPRN PRN apply 10/25/25 10/25/25 History
to right pinky finger joint
aspirin 81 mg tablet,delayed 81 mg PO DAILY Blood Clot 10/25/25 10/25/25 History
release Prevention/Tx
escitalopram oxalate 10 mg tablet 10 mg PO DAILY Mental 10/25/25 10/25/25 History
Health/Anxiety
metoprolol tartrate 25 mg tablet 12.5 mg PO BID Blood Pressure 10/25/25 10/25/25 History
tadalafil 5 mg tablet 5 mg PO DAILY Urinary Issue 10/25/25 10/28/25 History
Review of Systems
-
History Source: Patient
General: Reports Fever, Fatigue and Chills
HEENT: Reports No Symptoms
Respiratory: Reports SOB
Cardiac: Reports No Symptoms
Abdomen/GI: Reports No Symptoms
: Reports No Symptoms
Musculoskeletal: Reports No Symptoms
Skin: Reports No Symptoms
Neurological: Reports No Symptoms
Vascular: Reports No Symptoms
Physical Exam
Vital Signs
Temp 98.0 F 10/31/25 07:42
Temp route: Oral 10/31/25 07:42
Pulse 65 10/31/25 10:00
Rhythm: Normal sinus rhythm 10/30/25 19:45
With- PVC's Monomorphic 10/30/25 08:00
Resp Rate 15 10/31/25 10:00
Blood pressure 145/97 10/31/25 10:00
Blood pressure extremity used: Left upper arm 10/30/25 17:52
Position: Lying 10/30/25 17:52
MAP (cuff-Ade Monitor) 110 10/31/25 10:00
SaO2 96 10/31/25 08:00
Nasal Cannula flow liters per minute 2 10/28/25 20:15
Oxygen Mode of Delivery Room air 10/31/25 07:54
Other oxygen comment when sleeping 10/26/25 14:22
Oxygen Mode of Delivery: Room air 10/30/25 18:28
Flow liters per minute # 6 10/30/25 17:52
Can the patient verbally communicate their pain? Yes 10/31/25 08:00
Pain scale ratin 10/31/25 06:00
Actual Weight 94.1 kg 10/26/25 06:00
Body Mass Index (BMI) 25.3 10/26/25 06:00
Supine- Blood Pressure 104/78 10/26/25 12:21
Supine- Pulse 81 10/26/25 12:21
Sitting- Blood Pressure 120/73 10/27/25 10:18
Sitting- Pulse 82 10/27/25 10:18
Standing- Blood Pressure 103/70 10/27/25 10:18
Standing- Pulse 92 10/27/25 10:18
Blood pressure extremity used: Right upper arm 10/27/25 10:18
Mode BP taken: Automatic 10/27/25 10:18
Labs
10/31/25 06:19
10/31/25 06:19
Urinalysis
Urine Color Yellow 10/25/25 13:36
Urine Clarity Clear (Clear) 10/25/25 13:36
Urine pH 5.0 (5.0-9.0) 10/25/25 13:36
Ur Specific [place] 1.015 (<1.030) 10/25/25 13:36
Urine Ketones Negative (Negative) 10/25/25 13:36
Ur Occult Blood Reflex 4+ (Negative) A 10/25/25 13:36
Urine Bilirubin Negative (Negative) 10/25/25 13:36
Leukocyte Esterase Rfl 1+ (Negative) A 10/25/25 13:36
Urine RBC 3-6 /HPF (0-2) A 10/25/25 13:36
Urine WBC (Reflex) 16-20 /HPF (0-5) A 10/25/25 13:36
Ur Squamous Epith Cells 0-2 /LPF (Few) 10/25/25 13:36
Amorphous Crystals Seen 10/25/25 13:36
Urine Bacteria (Reflex) Many (Negative) A 10/25/25 13:36
Urine Glucose Negative (Negative) 10/25/25 13:36
Urine Albumin (Reflex) 2+ (Neg - Trace) A 10/25/25 13:36
Exam
General: Well Developed and Well Nourished
HEENT: Normocephalic
Cardiac: S1/S2 and Murmur
GI: Soft
Rectal: Deferred by Provider
Skin: Warm and Dry
Neuro: AO x 3
Lymph: Lymphadenopathy
Psych: Calm
Assessment / Plan
-
60 y/o male with pmhx listed above presented with a persistent fever and was found to have an infection of the fifth right digit and +MSSA. DAVIE with likely small vegetation on annuloplasty band. CT surgery was consulted for evaluation.
#endocarditis
- Continue Cefazolin for 6 weeks and repeat DAVIE
- ID and cards following
--- NOTE | 2025-10-31 13:23 | PTCARENOTE ---
VAT at bedside to place PICC.
[2025-10-31] MEDS: TUMS CHEWABLE TABLET 200 MG PO ×2 (16:10→23:20)
[2025-10-31] MEDS: DILAUDID 1 MG IV ×2 (16:11→21:10)
--- NOTE | 2025-10-31 16:33 | CM ---
F/U: Patient needs home IV Abx, AIMEE Leon met with patient/ family, patient was on this prior, they chose [facility]. [facility] had clinical then needed insurance card so faxed that. [facility] will have answer in the AM re: benefits and likely
come by for quick teaching. AIMEE learned that patient might be ready to DC tomorrow so told the team late morning is ideal. Will follow up in the AM. PLAN: Home w/ home Infusion.
--- NOTE | 2025-10-31 16:52 | PTCARENOTE ---
Rec'd care of patient at 0700. AAOx3. Independent in room. VSS. Afebrile. NSR with pacs on tele. RUE neurovascular checks wnl. Dressing c/d/i. Lung sounds cta. Pulse ox 96-98% on RA. +BS. Appetite remains poor. Advanced back to regular diet
following DAVIE. Tender to palpation in LUQ. C/o 'upset stomach'. Repeat EKG obtained. Results discussed with Resident. Order for tums placed and administered. No bm. Voiding in bathroom. Left SL PICC placed. Placement verified with cxr.
[2025-10-31] MEDS: LOVENOX 40 MG SC (17:47)
[2025-11-01] VITALS: BP 109/66
--- NOTE | 2025-11-01 01:19 | PTCARENOTE ---
pt c/o stomach upset, requesting tums. tack picker messaged by this RN to communicate pts request for tums. order received. medication admin.
[2025-11-01 02:00] VITALS: BP 140/90
[2025-11-01] MEDS: ANCEF 10 IV ×2 (03:02→09:08)
[2025-11-01 04:00] VITALS: BP 114/80
[2025-11-01 05:18] LABS: Hematocrit 28.7 % (39.0-52.0); Hemoglobin 9.4 g/dL (13.0-18.0); Mean Corp Hgb Conc. 32.8 g/dL (33.0-37.0); Mean Corpuscular Volume 84.9 fL (80.0-94.0); Nucleated Red Blood Cells % 0 % (-); Platelet Count 165 10^3/uL (130-400); Red Cell Dist. Width 15.2 % (11.5-14.5)
[2025-11-01 05:43] LABS: ALT (SGPT) 30 U/L (0-50); AST (SGOT) 48 U/L (17-59); Albumin 2.9 g/dl (3.5-5.0); Alkaline Phosphatase 108 U/L (38-126); Blood Urea Nitrogen 12 mg/dl (9-20); Calcium 7.9 mg/dl (8.4-10.2); Carbon Dioxide 28 mmol/L (22-30); Chloride 102 mmol/L (98-107); Estimated Creatinine Clearance > 125 ml/min; Glucose 90 mg/dl (70-99); Potassium 3.7 mmol/L (3.5-5.1); Sodium 135 mmol/L (135-145); Total Protein 5.8 g/dl (6.3-8.2); eGFR > 60.00
[2025-11-01] MEDS: DILAUDID 1 MG IV (05:50)
[2025-11-01] MEDS: TYLENOL 1000 MG PO (05:50)
[2025-11-01 06:00] VITALS: BP 143/93
--- NOTE | 2025-11-01 07:11 | W.PN.HOSP.TC ---
Addendum entered and electronically signed by Boy García MD 11/02/25 13:02:
I personally reviewed and evaluated this patient with the resident. I agree with above unless if otherwise stated below.
I personally reviewed labs and imaging home care consultant notes case management note
MSSA bacteremia
Infective endocarditis with small vegetation
Septic joint�right small finger PIP
GHULAM
Ancef 6 weeks of IV antibiotics from last negative blood cultures
Will require PICC line prior to discharge
DAVIE small veg, evaled by CTS, at this time no opeative intervention
S/p irrigation debridement of left small finger PIP arthrotomy, postop day 1
Original Note:
Today's Communication/Plan
-
Home today with IV abx
Ortho f/u 10-14 days
Assessment / Plan
Assessment / Plan
60yoM PMH afib secondary to valvular dx s/p MV replacement, nephrolithiasis, sepsis secondary to L knee infxn in May presenting with acute onset of diarrhea, body aches, chills, fever since Thursday afternoon 4 days ago.
10/25 Afebrile. Continues to be borderline hypotensive after 3L resuscitation. Whole body aches, RUQ tenderness. Nausea and vomiting. GB distention on CT. Head CT positive for subgaleal hematoma. WBC 4.8, 10% bands, BUN 37 Cr 2.0. Lactate 3.7 repeat
1.3. Thrombocytopenia, hx of low plts with infxn per outpt records. LFTs WNL. Lipase 67. Sepsis with GHULAM viral gastroenteritis vs biliary infection given distention on CT and RUQ tenderness. No Lymphadenopathy. CRP>270 ESR 39. UA pending. CXR not
indicative of acue cardiopulmonary process.
10/26 AFVSS. Overnight tachycardic and tachypneic w/ tmax 100.4, improved this morning vitals WNL. BC +gram positive cocci in clusters; hx MSSA. Continue on zosyn added vanc. ID consult. Echo for MV replacement. Repeat head CT with no acute
findings, dissipation of subgaleal hematoma. UC pending. MRSA screen pending. Ab US demonstrated distended GB but no stone findings; RUQ tenderness improved, continue watching. New R 5th finger pain without erythema; monitor for improvement,
encourage ice. Hgb dropped 12.1 to 9.7, no current source of bleeding vs dilutional. Ask nursing to monitor for hematochezia.
10/27 AFVSS. New LUQ pain in addition to back and finger pain. awaiting sensitivities, continues on abx. MRI hand and spine today. Cr improved 0.7, GHULAM resolved. CXR. Intermittent hypoxia with sleep; oxygen for sleeping, recommend outpt sleep study.
New sore throat; encouraged PO intake due to dry air in hospital. Continue monitoring. Standing tylenol.
10/28 AFVSS until pt experienced episode of rigors with tachycardia, tachypnea, fever 102.9. Episode of blurry vision with defecation. TTE demonstrated no signs fo endocarditis. LUQ pain concern for abscess, repeat CT abd/pelvis with contrast. R 5th
finger without erythema or worsened pain. Still high suspicion for endocarditis given rigors and variable pain throughout body. CMP WNL. Seonc set of NGTD, repeated today. Hg continues to downtrend without source bleed vs dilutional given
incremental and high RDW. Thoracic MRI demonstrated no acute abnormality. DAVIE planned for thursday
10/29 AFVSS. No rigors since episode yesterday. Hgb stabilized 8.9, plts increased 100, WBC decreased 3.6. UE MRI demonstrated septic joint. Ct abd: hepatosplenomegaly stable, likely bilateral atelectasis. No clinical signs of pneumonia, encourage
IS. On low level oxygen 2L NC, initially started with sleep with evidence of BENITA but continues to be on during day now. DAVIE tomorrow. Ortho consult for possible hand washout.
10/30 AFVSS. Continues to be afebrile>48hrs, CBC improving. K and Mg repleted to 4 and 2 respectively. Plan for finger debridement with ortho today. DAVIE deferred until tomorrow. Tigan added for nausea for QTc 495, plan to repeat EKG. Continue abx
per ID.
10/31 AFVSS. BC NGTD since 10/26. Debridement yesterday, wound cultures pending. DAVIE today. Repeat ECG today. PICC placement, dispo pending ID recs.
11/01 AFVSS. Pt feeling well today with improved abdominal pain but continued 5th digit pain, tolerable.
PLAN:
#sepsis
#nausea, vomiting, diarrhea
#lactic acidosis
- fluid resuscitation
- Supportive measures, Tylenol, zofran PRN
- Continue Zosyn pending abd US. Possible viral gastroenteritis
- UA pending
- CXR not indicative of acute cardiopulmonary process
- Gram+ cocci in clusters on BCx2. MSSA, vanc stopped, continue on ancef per ID
- Plan for DAVIE
- 10/26 grew at 72hrs
- MRI of hand demonstrates likely septic joint. Ortho debridement yesterday.
- Leukopenia improving
- PICC placed. IV Abx to go home.
#RUQ tenderness
#splenomegaly
- GB distended and splenomegaly on CT, ordered Abd US
- LFTs WNL
- Lipase 67
- Ab US distended GB without stones. Continue to monitor w improved symptoms.
- New LUQ cramps. Monitor. Made tylenol standing. Added tigan for nausea. Improving each day. No tenderness today.
- Repeat CT abd with IV contrast to look for abscess/source. No suspicious findings
#prerenal GHULAM
- fluid resuscitation
- Trend CMP
- Improved. Continue monitoring
- UC NGTD
#thrombocytopenia
- hx outpt, trend plts
- no active bleeding so plan to monitor
- Stable
#chronic back pain
- PRN tylenol. Hold toradol given GHULAM
- Diclofenac gel
- 1 dose morphine
- Stable this morning
- 1 dose ofrimev given for general aches.
- Continue monitoring
- MRI spine no abnormality
#R 5th finger PIP pain
- continue to monitor
- hand MRI septic joint
Code: Full
DVT prophylaxis: lovenox
Diet: Ful
Anticipated Discharge: Today
Subjective/Interval History
-
Date of Service: November 01, 2025
Pt reports improving symptoms. He reports GI upset that is relieved by tums. Complaints of healing 5th digit pain.
Objective Data
-
Labs:
Laboratory Results
11/01/25
05:02
WBC 8.2
Hgb 9.4 L
Hct 28.7 L
Plt Count 165
Sodium 135
Potassium 3.7
Chloride 102
Carbon Dioxide 28
BUN 12
Creatinine 0.6 L
Glucose 90
Calcium 7.9 L
Total Bilirubin 0.4
AST 48
ALT 30
Alkaline Phosphatase 108
Vital Signs:
Vital Signs
Temp Pulse Resp BP Pulse Ox
98.7 F 72 9 143/93 98
11/01/25 03:00 11/01/25 06:00 11/01/25 06:00 11/01/25 06:00 11/01/25 06:34
I&O
10/31/25 11/01/25 11/02/25
06:59 06:59 06:59
Intake Total 50 / 50
Balance 50 / 50
Physical Exam
-
General: Well Developed, Well Nourished, No Apparent Distress and Comfortable
HEENT: Normocephalic, Atraumatic and Moist Mucous Membranes
Respiratory: Clear to Auscultation and Non Labored Respirations
Cardiac: Regular Rhythm and S1/S2
GI: Soft, Nontender and Nondistended
Musculoskeletal: No Edema and Other (RUE wrapped in bandage)
Skin: Warm and Dry
Neuro: AO x 3 and Nonfocal/Grossly Intact
Psych: Calm
[2025-11-01 08:00] VITALS: BP 132/94
[2025-11-01] MEDS: TUMS CHEWABLE TABLET 200 MG PO (09:05)
[2025-11-01] MEDS: ASPIR LOW (ENTERIC COATED) 81 MG PO (09:06)
[2025-11-01] MEDS: LOPRESSOR 12.5 MG PO (09:06)
[2025-11-01] MEDS: LEXAPRO 10 MG PO (09:06)
[2025-11-01] MEDS: DICLOFENAC 1% TOPICAL GEL 100 GRAM TOPICAL (09:07)
--- NOTE | 2025-11-01 09:14 | W.PN.CARDCBS ---
Today's Communication / Plan
-
Okay for discharge from cardiology standpoint
Continue cefazolin for 6 weeks
Plan will be to repeat DAVIE in 6 weeks after antibiotics is finished
If patient has new fevers, embolic event, or symptoms would repeat DAVIE sooner
Will arrange follow-up.
Impression / Plan
-
PCP: Dr. Tolbert
Bricklayer Sewer: Dr. Bowers
Impression:
Presented with chest pain
Elevated troponin, peaked 0.072
Leukocytosis and fever
Severe MR s/p mitral valve repair (34mm SimuPlus band and 3 pairs of CV4 neochordoplasty to P2/P3, cleft closure) 10/02/2023
Paroxysmal atrial fibrillation
s/p CV 03/12/2017, 01/2023, 07/30/2023
s/p MAZE and TEJ exclusion 10/02/2023hronic anticoagulation on Eliquis
Nonischemic CM, EF 45-50% by echo 09/2023
Hypertension
Nephrolithiasis with prior urethral stenting 2016
Obstructive sleep apnea
Chronic thrombocytopenia
GERD
Cardiac catheterization 06/25/2023:�No obstructive coronary artery disease.� Mildly elevated right and left-sided filling pressures without evidence of pulmonary hypertension. Normal cardiac output with low systemic vascular resistance.
DAVIE 03/02/2023:�EF 55 to 60%, mild concentric LVH, no TEJ thrombus,Significant posterior mitral valve leaflet prolapse with partial flail and severe eccentric anteriorly directed mitral regurgitation.
Echo 01/25/2021:�EF 55 to 60%, mild concentric LVH, severe left atrial dilation with posterior leaflet prolapse and moderate to severe MR.
Echo 09/30/2023: EF 45-50%, global hypokinesis with regional variation, severe posterior mitral valve leaflet prolapse with partial flail, severe eccentric MR, systolic flow reversal in the pulmonary veins, mild TR, estimated PAP 40 mmHg,
Echo 10/15/2023: EF 50 to 55%, status post MV repair with mean gradient 3, no regurgitation. Compared to prior echo from September 2023 EF has improved and mitral valve has been repaired.
DAVIE 10/31/25, EF 55%, MV repair with small area of mobile thickening on Annuloplasty band with mild MR, Mean Gradient 2mmHg, likely small vegetation
Plan:
Presented with fever found to be bacteremic with blood cultures positive for MSSA
Blood cultures with MSSA on 10/25 and 10/26. Blood cultures 10/28 NGTD, and 10/30.
Hemodynamically stable with last temperature 102.6 on 10/28
Had I and D of Right finger 10/30
DAVIE today with a small mobile echodensity on the annuloplasty band consistent with likely endocarditis. There is only mild mitral regurgitation present.
Continue cefazolin for 6 weeks and would repeat DAVIE after treatment with antibiotics ,assuming remains clinically stable with no new fevers.
If patient has new symptoms would repeat DAVIE sooner. Case discussed with CT surgery and they will see patient today as well
Thrombocytopenia has resolved and platelet count now 163,000
Progress Note - Bricklayer Sewer
Subjective
Date of Service: November 01, 2025
Overall feels well. No new fevers.
Objective
Labs:
11/01/25 05:02
11/01/25 05:02
Labs
Hgb 9.4 g/dL (13.0-18.0) L 11/01/25 05:02
Hct 28.7 % (39.0-52.0) L 11/01/25 05:02
Plt Count 165 10^3/uL (130-400) 11/01/25 05:02
Sodium 135 mmol/L (135-145) 11/01/25 05:02
Potassium 3.7 mmol/L (3.5-5.1) 11/01/25 05:02
BUN 12 mg/dl (9-20) 11/01/25 05:02
Creatinine 0.6 mg/dL (0.7-1.3) L 11/01/25 05:02
Glucose 90 mg/dl (70-99) 11/01/25 05:02
Vital Signs and I&O:
Vital Signs
Temp Pulse Resp BP Pulse Ox
98.3 F 72 9 132/94 98
11/01/25 07:14 11/01/25 09:06 11/01/25 06:00 11/01/25 09:06 11/01/25 06:34
Vital Signs
Temp Pulse Resp BP Pulse Ox
98.3 F 72 9 132/94 98
11/01/25 07:14 11/01/25 09:06 11/01/25 06:00 11/01/25 09:06 11/01/25 06:34
Intake & Output
10/30/25 10/31/25 11/01/25 11/02/25
06:59 06:59 06:59 06:59
Intake Total 1200 / 1200 50 / 50
Balance 1200 / 1200 50 / 50
Physical Exam
Physical Exam
GEN: No distress, awake, Ox3
HEENT: supple, anicteric, mmm
LUNGS: CTA, no wheezes/rales
CV: Reg, S1/S2, 1/6 syst LSB, no gallop
ABD: soft, BS+, NT/ND
EXT: No edema
NEURO: Gross non-focal
SKIN: R hand dresssing intact
--- NOTE | 2025-11-01 10:19 | W.PN.ID1 ---
Date of Service
Date of Service: November 01, 2025
Today's Communication
- c/w cefazolin 6 weeks of IV antibiotics from clearance of blood cultures - script provided to case maker
- after 6 weeks of cefazolin will start doxycycline 100 mg PO BID
- follow up within about 6 weeks
Assessment / Plan
MSSA Bacteremia
Septic joint of the right 5th digit with osteomyelitis of the middle and proximal phalanx
Possible endocarditis with vegetation on prosthetic repair band
Fevers - resolved
GHULAM - resolved
MV repair
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
H/o spontaneous septic knee joint due to MSSA treated at [facility]
No hardwear in the body
- S aureus bacteremia 10/25, 10/26
- 10/28 blood cultures no growth
- MRI right hand - septic joint of the 5th PIP joint with assc osteomyelitis middle and proximal phalanx
- appreciate orthopedics
- thoracic spine MRI with and without contrast no lesions
- TTE - MVR no vegetations; DAVIE pending
- PICC
- c/w cefazolin 6 weeks of IV antibiotics from clearance of blood cultures - script provided to case maker
- after 6 weeks of cefazolin will start doxycycline 100 mg PO BID
- follow up within about 6 weeks
Chief Complaint
-: Bacteremia (S aureus)
Subjective / Review of Systems
afebrile
bp stable
tolerating current therapies
Vital Signs / Physical Exam
Vital Signs
Vital Signs
Temp Pulse Resp BP Pulse Ox
98.3 F 72 19 132/94 98
11/01/25 07:14 11/01/25 09:06 11/01/25 08:00 11/01/25 09:06 11/01/25 06:34
Physical Exam
Constitutional: No Acute Distress
Cardiovascular: Regular Rate and S1/S2; Negative Murmur or Rub
Pulmonary: Clear and Symmetric; Negative Wheezes or Rales
Gastrointestinal: Soft, Non Tender, Non Distended and Normal Bowel Sounds
Skin: Warm and Dry; Negative Rash or Jaundice
Objective Data
Lab Data
Lab Results
11/01/25 05:02
11/01/25 05:02
ESR 39 mm/hour (0-20) H 10/25/25 08:37
Estimated Creat Clear > 125 ml/min 11/01/25 05:02
Lactic Acid Cancelled 10/26/25 04:17
Total Bilirubin 0.4 mg/dl (0.2-1.3) 11/01/25 05:02
AST 48 U/L (17-59) 11/01/25 05:02
ALT 30 U/L (0-50) 11/01/25 05:02
Alkaline Phosphatase 108 U/L (38-126) 11/01/25 05:02
C-Reactive Protein > 270.00 mg/L (0.0-10.00) H 10/25/25 08:37
Most recent labs reviewed.
Micro Results:
10/30/25 17:30 Anaerobic Culture - Preliminary
Finger - Right Culture pending. Anaerobic cultures are examined after 3
days incubation. Additional information to follow.
10/30/25 17:30 Wound Culture - Preliminary
Finger - Right No growth
Gram Stain - Preliminary
10/28/25 05:07 Blood Culture - Preliminary
Blood/Venous No Growth in 4 days- Final report to follow
10/28/25 05:07 Blood Culture - Preliminary
Blood/Venous No Growth in 4 days- Final report to follow
10/30/25 06:00 Blood Culture - Preliminary
Blood/Venous No Growth in 48 hours- Final report to follow
10/30/25 05:00 Blood Culture - Preliminary
Blood/Venous No Growth in 48 hours- Final report to follow
10/26/25 09:25 Blood Culture - Final
Blood/Venous No Growth - Final Report
10/26/25 10:10 Blood Culture - Preliminary
Blood/Venous S aureus-Methicillin Sensitive
Gram Stain - Preliminary
10/25/25 08:43 Blood Culture - Final
Blood/Venous S aureus-Methicillin Sensitive
Gram Stain - Final
10/25/25 08:37 Blood Culture - Final
Blood/Venous S aureus-Methicillin Sensitive
Gram Stain - Final
10/26/25 08:19 MRSA Screen - Final
Nose No Methicillin Resistant Staphylococcus aureus isolated.
10/25/25 13:36 Urine Culture - Final
Urine NO GROWTH
10/25/25 08:37 Influenza Types A & B (CAROLE) - Final
Nasal Swab Negative for Influenza A & B, NAAT
Negative results must be combined with clinical observations
and patient history.
Nucleic Acid Amplification test (NAAT)performed on the
[employer] platform.
[2025-11-01] MEDS: ROXICODONE 10 MG PO (11:03)
--- NOTE | 2025-11-01 12:06 | CM ---
F/U: AIMEE Leon confirmed with [facility] that Jeff will be out today. CT surgery will not perform anymore medical tasks so patient can discharge. AIMEE confirmed that patient needs no other Home Services. [facility] came out, provided cost re: his
benefits, patient agreed. Then Jeff completed the teaching. [facility] will get medications out to patient by 4pm, so patient police lieutenant patrol discharge and he will get his next dose (already got AM one) at home. PICC report provided to [facility]. PLAN: Home
w/ Home Infusion- [facility].
--- NOTE | 2025-11-01 13:12 | W.PN.ORTHO ---
Today's Communication / Plan
-
60-year-old male postop day 2 status post I&D right small finger PIP joint for presumed septic arthritis
Nonweightbearing right upper extremity in bulky dressing
Recommend keeping surgical incision covered with bulky dressing until follow-up
Okay to shower but would not soak incision
Follow-up cultures
Plan to follow-up with myself outpatient approximately 10 days postop repeat clinical assessment removal of sutures
Subjective
.
.:
Patient resting comfortably.
Vital Signs and Labs
.
Vital Signs and Labs:
Lab Results
11/01/25 05:02
11/01/25 05:02
Temp Pulse Resp BP Pulse Ox
99.0 F 72 19 132/94 99
11/01/25 11:35 11/01/25 09:06 11/01/25 08:00 11/01/25 09:06 11/01/25 11:21
Physical Exam
-
Musculoskeletal right upper extremity
Dressing removed surgical incision visualized, no erythema or ecchymotic staining, no drainage
Sutures in place
Brisk cap refill distally
[2025-11-01 13:19] VITALS: BP 120/77
[2025-11-01] MEDS: TYLENOL PO (13:24)
--- NOTE | 2025-11-01 16:13 | W.DCSUMMARY ---
Discharge Summary
Discharge Data
Date of Admission: 10/25/25
Date of Discharge: 11/01/25
-
Pending Results: No
Hospital Course
60yoM PMH afib secondary to valvular dx s/p MV replacement, nephrolithiasis, sepsis secondary to L knee infxn in May presenting with acute onset of diarrhea, body aches, chills, fever for 4 days. Pt described body aches, diarrhea and chills with
onset of nausea and vomiting. He describes lightheadedness with presyncopal symptoms over the last day. Syncopal episode getting CXR done today and hit his head. Pt reported chronic back T6-T10 that has been worse over the last 3-4 weeks due to
inability to see his chiropractor. He has had back pain since he was 21 but it had subacutely worsened.
10/25 Borderline hypotensive after 3L resuscitation. Whole body aches, RUQ tenderness. Nausea and vomiting. GB distention on CT. Head CT positive for subgaleal hematoma from fall in xray. WBC 4.8, 10% bands, BUN 37 Cr 2.0. Lactate 3.7 repeat 1.3.
Thrombocytopenia, hx of low plts with infxn per outpt records. LFTs WNL. Lipase 67. Sepsis with GHULAM viral gastroenteritis vs biliary infection given distention on CT and RUQ tenderness. No Lymphadenopathy. CRP>270 ESR 39. CXR not indicative of acute
cardiopulmonary process.
10/26 Overnight tachycardic and tachypneic w/ tmax 100.4. BC +gram positive cocci in clusters; hx MSSA. Continue on zosyn added vanc. ID consult. Echo for MV replacement. Repeat head CT with no acute findings, dissipation of subgaleal hematoma. UC
pending. MRSA screen pending. Ab US demonstrated distended GB but no stone findings; RUQ tenderness improved, continue watching. New R 5th finger pain without erythema; monitor for improvement, encourage ice. Hgb dropped 12.1 to 9.7, no current
source of bleeding.
10/27 AFVSS. New LUQ pain in addition to back and finger pain. MRI hand and spine. Cr improved 0.7, GHULAM resolved. CXR. Intermittent hypoxia with sleep; oxygen for sleeping, recommend outpt sleep study. Standing tylenol.
10/28 Pt experienced episode of rigors with tachycardia, tachypnea, fever 102.9. Episode of blurry vision with defecation. TTE demonstrated no signs fo endocarditis. R 5th finger without erythema or worsened pain. Hg continues to downtrend without
source bleed vs dilutional. Thoracic MRI demonstrated no acute abnormality.
10/29 AFVSS. Hgb stabilized 8.9, plts increased 100, WBC decreased 3.6. UE MRI demonstrated septic joint. Ct abd: hepatosplenomegaly stable, likely bilateral atelectasis. No clinical signs of pneumonia, encourage IS. On low level oxygen 2L NC,
initially started with sleep with evidence of BENITA but continues to be on during day now. Ortho consult for possible hand washout.
10/30 AFVSS. Continues to be afebrile>48hrs, CBC improving. K and Mg repleted to 4 and 2 respectively. Plan for finger debridement with ortho today. Tigan added for nausea for QTc 495, plan to repeat EKG.
10/31 AFVSS. BC NGTD since 10/26. DAVIE today. PICC placement.
11/01 AFVSS. CBC improved. Home IV abx set up by AIMEE.
Continue IV abx for 6 weeks. Plan to follow up with orthopedics for suture removal in 10 days. See infectious disease. Follow up with cardiology for repeat DAVIE in 6 weeks once abx are over. Follow up with sleep doctor regarding sleep apnea.
Imaging
Thoracic MRI: Mild multilevel degenerative disc disease throughout the thoracic spine. There are no prominent posterior thoracic disc protrusions. No high grade spinal canal or neural foraminal stenosis at the thoracic disc levels. Retroperitoneal
and paravertebral tissues: 1.6 cm exophytic cyst along the superior pole the right kidney.
Discharge Plan
-
Patient Disposition: Home (Routine Discharge)
Discharge Diagnosis/Procedures: MSSA bacteremia
5th digit septic joint
severe sepsis
Condition: Good
Diet: As tolerated
Activity: As tolerated
Driving Restrictions: no driving
Bathing Restrictions: do not get wound wet
Other Services: VN
Wound Care: Leave wound wrapped until follow up with orthopedics 10-14 days.
Referrals:
Devyn Tolbert MD [Family Provider, Family Practice]
Shalom Bowers MD [Active, Cardiology] - 11/30/25 8:40 am
Referral Note: You have a cardiology follow up appointment at the [place] office. Please call with questions
Bennie Lazo MD [Active, Orthopedics] - 11/13/25
Prescriptions:
New
cefazolin 10 gram Recon Soln
2 g IV Q8H
oxycodone 10 mg Tablet
10 mg PO Q4HPRN PRN (Reason: pain) 3 Days Qty: 20 0RF
Rx Instructions:
take 1 tab for mild - moderate pain
take 2 tabs for severe pain
Continued
aspirin 81 mg Tablet,Delayed Release (Dr/Ec)
81 mg PO DAILY
escitalopram oxalate 10 mg Tablet
10 mg PO DAILY
tadalafil 5 mg Tablet
5 mg PO DAILY
metoprolol tartrate 25 mg Tablet
12.5 mg PO BID
Voltaren 1 % gel
1 applic topical QIDPRN PRN (Reason: apply to right pinky finger joint)
Discharge Orders:
Discharge Patient (As Directed); Ordered 11/01/25
Ordered By: Trena Schwartz
Discharge Date and Time
Discharge Date/Time: 11/01/25 13:30
Print Language: YAKUT
== END 2025-11-01 13:30 | disposition home or self-care (01) | DRG 853 ==
LOC: IMU 12:56
PROVIDERS: Internal Medicine Cardiovascular Disease; Orthopaedic Surgery; ADMITTING PHYSICIAN Internal Medicine; ATTENDING PHYSICIAN Hospitalist; CONSULT PHYSICIAN Internal Medicine Cardiovascular Disease; CONSULT PHYSICIAN Student in an Organized Health Care Education/Training Program; CONSULT PHYSICIAN Thoracic Surgery (Cardiothoracic Vascular Surgery); EMERGENCY PHYSICIAN Emergency Medicine; FAMILY PHYSICIAN Family Medicine
PROC: 0JBJ0ZZ Excision of Right Hand Subcutaneous Tissue and Fascia, Open Approach (ICD-10-PCS; 2025-10-30)
PROC: B24BZZ4 Ultrasonography of Heart with Aorta, Transesophageal (ICD-10-PCS; 2025-10-30)
DX: A41.01 Sepsis due to Methicillin susceptible Staphylococcus aureus (principal); G93.41 Metabolic encephalopathy; E87.20 Acidosis, unspecified; M00.9 Pyogenic arthritis, unspecified; Q21.12 Patent foramen ovale; N17.9 Acute kidney failure, unspecified; J98.11 Atelectasis; R65.20 Severe sepsis without septic shock; Z87.442 Personal history of urinary calculi; I48.0 Paroxysmal atrial fibrillation; R09.02 Hypoxemia; Z91.048 Other nonmedicinal substance allergy status; Z79.82 Long term (current) use of aspirin; D69.6 Thrombocytopenia, unspecified; G89.29 Other chronic pain; G47.33 Obstructive sleep apnea (adult) (pediatric); I10 Essential (primary) hypertension; K21.9 Gastro-esophageal reflux disease without esophagitis; S00.03XA Contusion of scalp, initial encounter; W19.XXXA Unspecified fall, initial encounter; Z79.01 Long term (current) use of anticoagulants; Z82.49 Family history of ischemic heart disease and other diseases of the circulatory system; Z79.899 Other long term (current) drug therapy; Z11.52 Encounter for screening for COVID-19
CPT/HCPCS: 70450; 71045; 72157; 73223; 74160; 74176; 76705; 80053; 80202; 81003; 81015; 82248; 82533; 83605; 83690; 83735; 85025; 85652; 86140; 87040; 87070; 87075; 87086; 87147; 87186; 87205; 87502; 87811; 93005; 93306; 93312; 93320; 93325; 96361; 96374; 96375; 99285; A9575; Q9967